=== PATIENT | male | born 1970 | race Caucasian/White ===

== ENCOUNTER 2016-08-15 13:06 | Emergency (ER) | payer BC, MEDICAID ==
[~2016-08-15] VITALS: Ht 180.3 cm; Wt 124.7 kg
[~2016-08-15 13:06] MED LIST: ACET500C4 PO; ALBU8.5H2 PO; ASPI1TAB PO; BUPR8TAB SL; CITA-105 PO; CLON0.5T3 PO; CYCL10TA9 PO; FLUC200T45 PO; FURO40TA4 PO; IBUP800T26 PO; LEVO750T6 PO; LISI-597 PO; LISI1TAB8 PO; METH4TAB; METH4TAB PO; METHYLPRED; METO-272 PO; OMEP40CA36 PO; PRD20T PO; SULF-222 PO; TEST200V3 IJ; ZOLP10TA5 PO
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
[2016-08-15] MEDS ORDERED: CATHETER FLUSH 10 ML SYR IV PRN (13:30)
[2016-08-15] MEDS ORDERED: NS 100 ML (IVPB) BAG IV ONE (13:30)
[2016-08-15] MEDS ORDERED: IOHEXOL 350 MG/ML 100 ML (OMNIPAQUE 350) VIAL IV ONE (13:30)
--- NOTE | 2016-08-15 13:30 | Diagnostic Imaging Report ---
EXAMINATION: Supine portable radiograph of the chest. INDICATION: Injury. FINDINGS: The heart is moderately enlarged. There is minimal prominence of the vascular markings, could relate to congestion. No effusion or pneumothorax demonstrated on this supine radiograph. The mediastinum and sneha appear unremarkable. IMPRESSION: Cardiomegaly with minimal pulmonary vascular congestion. Dictated by: Dictated on workstation # [id number]
[2016-08-15 13:35] LABS: MEAN PLATELET VOLUME 9.6 FL (7.4-10.4); RED BLOOD COUNT 4.34 10^6/uL (4.35-5.85); RED CELL DISTRIBUTION WIDTH 12.9 % (10.0-14.5); WHITE BLOOD COUNT 7.4 10^3/uL (4.3-11.0)
--- NOTE | 2016-08-15 13:44 | Diagnostic Imaging Report ---
EXAMINATION: AP view of the pelvis. INDICATION: Injury. FINDINGS: There is a partially visualized intramedullary nail in the left femur with a partially visualized deformity in the mid shaft of the left femur which appears to relate to an old fracture. There is suggestion of fused left SI joint. No fracture or dislocation is seen. IMPRESSION: No acute process. Dictated by: Dictated on workstation # [id number]
[2016-08-15] MEDS ORDERED: ONDANSETRON 4 MG/2 ML (SDV) Z0FRAN IVP ONE (13:45)
[2016-08-15 13:53] LABS: ALANINE AMINOTRANSFERASE 14 U/L (0-55); ALBUMIN 3.7 GM/DL (3.2-4.5); ALCOHOL < 10 MG/DL (<10); ANION GAP 10 MMOL/L (5-14); ASPARTATE AMINO TRANSFERASE 20 U/L (5-34); BILIRUBIN,DIRECT 0.1 MG/DL (0.0-0.3); BILIRUBIN,INDIRECT 0.3 MG/DL; BILIRUBIN,TOTAL 0.4 MG/DL (0.1-1.0); BLOOD UREA NITROGEN 15 MG/DL (7-18); BUN/CREATININE RATIO 18; CARBON DIOXIDE 29 MMOL/L (21-32); CHLORIDE 99 MMOL/L (98-107); CREATININE SERUM 0.82 MG/DL (0.60-1.30); GFR ESTIMATED > 60; GLUCOSE 99 MG/DL (70-105); POTASSIUM 3.9 MMOL/L (3.6-5.0); SODIUM 138 MMOL/L (135-145); TOTAL PROTEIN 6.7 GM/DL (6.4-8.2)
--- NOTE | 2016-08-15 13:56 | Diagnostic Imaging Report ---
PROCEDURE: CT head and CT cervical spine without contrast. TECHNIQUE: Multiple contiguous axial images were obtained through the brain and cervical spine without the use of intravenous contrast. Sagittal and coronal reformations through the cervical spine were then performed. INDICATION: Injury. FINDINGS: CT HEAD: There is no intracranial hemorrhage, edema or mass effect. The brain parenchyma and emanuel-white differentiation is preserved. There is no hydrocephalus. No extra-axial fluid collection is seen. The calvarium and the orbits appear grossly unremarkable. The nonspecific partial opacification of the anterior ethmoidal air cells and obliteration of the nasal cavity is seen. There is question of nondisplaced nasal bone fractures. CT CERVICAL SPINE: There is straightening of the cervical lordosis. The vertebral body heights are preserved. Disc heights are also preserved. The alignment at the posterior spinal line is satisfactory. There is also satisfactory alignment at the facet joints, lateral masses of C1 and C2 and atlantooccipital joints. No widening of the predental space with the atlantodental joint demonstrates mild degenerative changes and spurring. No posterior osteophytes are noted. IMPRESSION: CT HEAD: 1. No intracranial hemorrhage. 2. Question of a nondisplaced nasal bone fracture. Please correlate clinically. CT CERVICAL SPINE: No fracture seen. Dictated by: Dictated on workstation # [id number]
--- NOTE | 2016-08-15 14:09 | Diagnostic Imaging Report ---
PROCEDURE: CT chest, abdomen, and pelvis with contrast. TECHNIQUE: Multiple contiguous axial images were obtained through the chest, abdomen, and pelvis after the administration of intravenous contrast. INDICATION: Trauma. Right rib pain. FINDINGS: CT chest: There is asymmetric prominence of retroareolar tissue on the right side suggestive of gynecomastia. There is no mediastinal hematoma or mass. No enlarged mediastinal lymph nodes. Borderline-sized axillary lymph nodes are seen of questionable significance. No enlarged axillary lymph nodes are noted. The cardiac size is near the upper limits of normal. No pericardial effusion or hemorrhage. The thoracic aorta is normal in caliber and contour. No evidence of traumatic aortic injury. The lungs demonstrate groundglass opacities near the dependent region bilaterally, probably related to atelectasis or minimal vascular congestion. There is no suspicious area of lung contusion or hemorrhage in the lungs or in the pleura. Minimal atelectasis or scarring in the left lung base is seen. There are minimally displaced posterior right 11th and 12th rib fractures. CT abdomen and pelvis: There is a 1 cm hyperenhancing region in the left hepatic lobe similar to 10/21/2013 exam, likely a flash-filling hemangioma. A slightly more prominent similar lesion is also seen anteriorly in a more central location within the left hepatic lobe and the inferior aspect of the right hepatic lobe also demonstrates a hyperenhancing subsegment of the liver, probably perfusional alteration related enhancement rather than an underlying mass. The gallbladder, the pancreas, and adrenal glands appear unremarkable. The spleen is mildly enlarged measuring 13.7 cm in length. The abdominal aorta is normal in caliber. No retroperitoneal hemorrhage or lymphadenopathy. The kidneys have symmetric enhancement and contrast excretion. No hydronephrosis. There are moderate amounts of fecal material in the colon. The appendix appears normal. There is no peritoneal fluid collection or hemorrhage seen. There is a tiny fat-containing umbilical hernia. The urinary bladder and other pelvic structures appear unremarkable. Partially visualized intramedullary nail in the proximal left femur is seen. There are sclerotic foci in the sacrum less than a centimeter in size likely related to bony islands. These appear similar to 2014 exam. IMPRESSION: CT chest: 1. Minimally displaced posterior right 11th and 12th rib fractures. 2. Gynecomastia more prominent on the right side. CT abdomen and pelvis: 1. Tiny fat-containing umbilical hernia. 2. Mild splenomegaly. 3. No solid organ laceration or hematoma seen in the abdomen or pelvis. Dictated by: Dictated on workstation # [id number]
[2016-08-15] MEDS ORDERED: KETOROLAC 30 MG/ML VIAL IVP STA (14:29)
[2016-08-15] MEDS ORDERED: HYDROmorphone (DILAUDID) 2 MG/ML VIAL IVP STA (15:09)
[2016-08-15] MEDS ORDERED: OXYC-465 PO (15:17)
[2016-08-15 15:30] VITALS: BP 114/72
== END 2016-08-15 15:38 | disposition home or self-care (01) ==
LOC: EDUNIT# 13:06 → ER 13:09
DX: S22.41XA Multiple fractures of ribs, right side, initial encounter for closed fracture (principal); S06.9X9A Unspecified intracranial injury with loss of consciousness of unspecified duration, initial encounter; J44.9 Chronic obstructive pulmonary disease, unspecified; I10 Essential (primary) hypertension; K21.9 Gastro-esophageal reflux disease without esophagitis; M47.9 Spondylosis, unspecified; F31.9 Bipolar disorder, unspecified; F41.9 Anxiety disorder, unspecified; F17.210 Nicotine dependence, cigarettes, uncomplicated; Z79.82 Long term (current) use of aspirin; Z98.890 Other specified postprocedural states; V82 Occupant of powered streetcar injured in transport accident
CPT/HCPCS: 36415; 70450; 71010; 71260; 72125; 72170; 74177; 80048; 80076; 80320; 85027; 93041; 94664; 96374; 96375

== ENCOUNTER 2017-01-05 02:11 | Inpatient (IN) | payer BC, MEDICAID ==
[2017-01-05] VITALS (29 sets, daily range): BP systolic 95–174; BP diastolic 59–96
[~2017-01-05] VITALS: Ht 180.3 cm; Wt 97.1 kg
[~2017-01-05 02:11] MED LIST changes: +OXYC-465 PO; +fentaNYL INJECTION 100 MCG/2 ML AMP ONE
[2017-01-05] MEDS ORDERED: TETANUS,DIPTH,PERTUSS P/F (BOOSTRIX) 0.5 ML VIAL IM STA (02:28)
[2017-01-05 02:34] LABS: MEAN PLATELET VOLUME 9.7 FL (7.4-10.4); RED BLOOD COUNT 4.36 10^6/uL (4.35-5.85); RED CELL DISTRIBUTION WIDTH 12.3 % (10.0-14.5); WHITE BLOOD COUNT 23.8 10^3/uL (4.3-11.0)
[2017-01-05 02:49] LABS: ALANINE AMINOTRANSFERASE 21 U/L (0-55); ALBUMIN 3.7 GM/DL (3.2-4.5); ALCOHOL < 10 MG/DL (<10); ANION GAP 10 MMOL/L (5-14); ASPARTATE AMINO TRANSFERASE 33 U/L (5-34); BILIRUBIN,DIRECT 0.2 MG/DL (0.0-0.3); BILIRUBIN,INDIRECT 0.2 MG/DL; BILIRUBIN,TOTAL 0.4 MG/DL (0.1-1.0); BLOOD UREA NITROGEN 9 MG/DL (7-18); BUN/CREATININE RATIO 10; CARBON DIOXIDE 29 MMOL/L (21-32); CHLORIDE 100 MMOL/L (98-107); GFR ESTIMATED > 60; GLUCOSE 169 MG/DL (70-105); MAGNESIUM 1.8 MG/DL (1.8-2.4); PHOSPHORUS 2.3 MG/DL (2.3-4.7); POTASSIUM 3.5 MMOL/L (3.6-5.0); SODIUM 139 MMOL/L (135-145); TOTAL PROTEIN 6.5 GM/DL (6.4-8.2)
[2017-01-05 02:55] LABS: INR 1.1 (0.8-1.4); PROTHROMBIN TIME PATIENT 13.9 SEC (12.2-14.7)
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
[2017-01-05] MEDS ORDERED: HYDROmorphone (DILAUDID) 2 MG/ML VIAL IVP STA (03:15)
[2017-01-05] MEDS ORDERED: LORazepam INJ 2 MG/ML (ATIVAN) VIAL ONE (03:20)
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
[2017-01-05] MEDS ORDERED: LORazepam INJ 2 MG/ML (ATIVAN) VIAL IVP ONE (03:30)
[2017-01-05] MEDS ORDERED: IOHEXOL 350 MG/ML 100 ML (OMNIPAQUE 350) VIAL IV ONE (03:30)
[2017-01-05] MEDS ORDERED: NS 100 ML (IVPB) BAG IV ONE (03:30)
[2017-01-05] MEDS ORDERED: NS IV 1000 ML 1,000 ML IV ONE (03:33)
[2017-01-05] MEDS ORDERED: TRANEXAMIC ACID 100 MG/ML 10 ML INJECTION IV ONE (03:35)
[2017-01-05] MEDS ORDERED: ROCURONIUM 50 MG/5 ML (ZEMURON) VIAL IV ONE (03:37)
[2017-01-05] MEDS ORDERED: NS (IVPB) 50 ML ONE (03:37)
[2017-01-05] MEDS ORDERED: SUCCINYLCHOLINE INJ 100 MG/5 ML SYR ONE (03:37)
[2017-01-05] MEDS ORDERED: KETAMINE HCL 100 MG/ML 5 ML VIAL ONE (03:38)
[2017-01-05] MEDS ORDERED: fentaNYL INJECTION 250 MCG/5 ML AMP ONE (03:38)
[2017-01-05] MEDS ORDERED: TRANEXAMIC ACID INJECTION 1,000 MG in NS (IVPB) 50 ML IV ONE (03:45)
[2017-01-05] MEDS ORDERED: TRANEXAMIC ACID INJECTION 1,000 MG in NS (IVPB) 250 ML IV SCH (03:45)
[2017-01-05] MEDS ORDERED: PHENYLEPHRINE 100 MCG/ML 10 ML (ANESTHESIA) SYR ONE (04:40)
[2017-01-05] MEDS ORDERED: ONDANSETRON 4 MG/2 ML (SDV) Z0FRAN ONE (04:40)
[2017-01-05] MEDS ORDERED: ceFAZolin 2 GM/50 ML NS 50 ML IV ONE (05:15)
[2017-01-05] MEDS ORDERED: NEOSTIGMINE (BLOXIVERZ ) 1 MG/1ML 10 ML VIAL ONE (05:31)
[2017-01-05] MEDS ORDERED: GLYCOPYRROLATE 0.2 MG/ML (ROBINUL) 2 ML VIAL ONE (05:31)
[2017-01-05] MEDS ORDERED: ONDANSETRON 4 MG/2 ML (SDV) Z0FRAN IVP PRN ×2 (05:45→06:30)
--- NOTE | 2017-01-05 06:00 | Progress Note-Post Operative ---
Post-Operative Progess Note Surgeon (s)/[employer] (s) Surgeon SHAJI CRAIG DO [employer]: Clara Pre-Operative Diagnosis Splenic Lac, 4 rib fx, radius fx Post-Operative Diagnosis same Procedure & Operative Findings Date of Procedure 01/05/17 Procedure Performed/Findings Ex Lap with splenectomy Anesthesia Type GET Estimated Blood Loss Estimated blood loss (mL): 2700ml Specimens/Packing Specimens Removed Spleen SHAJI CRAIG DO Jan 05, 2017 06:00
[2017-01-05] MEDS ORDERED: PROPOFOL DRIP (ICU) 100 ML IV ONE (06:03)
[2017-01-05] MEDS ORDERED: MIDAZOLAM 5 MG/5 ML (VERSED) VIAL ONE (06:03)
[2017-01-05] MEDS ORDERED: NS IV 1000 ML 1,000 ML ONE (06:11)
[2017-01-05] MEDS ORDERED: proPOfol 200 MG/20 ML (DIPRIVAN) VIAL IV ONE (06:23)
[2017-01-05] MEDS ORDERED: SEVOFLURANE (ULTANE) 15 ML INHAL SOLN ONE (06:24)
[2017-01-05] MEDS ORDERED: MIDAZOLAM 2 MG/2 ML (VERSED) VIAL IVP ONE (06:30)
[2017-01-05] MEDS ORDERED: NS IV 1000 ML 2,000 ML ONE (06:52)
[2017-01-05] MEDS ORDERED: NS IV 500 ML 500 ML ONE (07:20)
[2017-01-05 07:21] LABS: ABG BASE EXCESS 0.2 MMOL/L (-2.5-2.5); ABG HCO3 26 MMOL/L (23-27); ABG OXYGEN SATURATION 99 % (94-100); ABG PCO2 51 MMHG (35-45); ABG PO2 128 MMHG (79-93); ABG TCO2 27.3 MMOL/L (21.0-31.0)
[2017-01-05] MEDS: POTASSIUM CL 10MEQ/50ML IVPB 50 ML IV SCH (07:21)
[2017-01-05] MEDS: LACTATED RINGERS 1,000 ML IV SCH ×4 (07:21→22:23)
[2017-01-05] MEDS: KCL 20 MEQ TAB (K-DUR) PO SCH (07:22)
[2017-01-05] MEDS: MAGNESIUM 1 GM/100 ML IVPB 100 ML IV SCH (07:22)
[2017-01-05 07:29] LABS: ABG PH 7.32 (7.37-7.43)
[2017-01-05 07:30] LABS: ALLENS TEST YES-POS; PATIENT TEMP 96.8
[2017-01-05] MEDS ORDERED: KETAMINE INJECTION 100 MG in NS (IVPB) 100 ML IV SCH (07:30)
[2017-01-05] MEDS ORDERED: PROPOFOL DRIP (ICU) 100 ML IV SCH (07:30)
[2017-01-05] MEDS ORDERED: NS IV 500 ML 500 ML IV ONE (07:45)
[2017-01-05] MEDS: RT-ALBUTEROL/IPRATROPIUM 3 ML (DUONEB) VIAL IH SCH ×4 (08:04→18:39)
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
[2017-01-05] MEDS ORDERED: GLUCAGON EMERGENCY 1 MG/KIT IM PRN (08:15)
[2017-01-05] MEDS ORDERED: DEXTROSE 50% 50 ML (IMS) SYR IV PRN (08:15)
[2017-01-05] MEDS ORDERED: DEXTROSE 10% IV SOLUTION 1,000 ML IV PRN (08:15)
[2017-01-05 08:36] LABS: ANION GAP 8 MMOL/L (5-14); BLOOD UREA NITROGEN 10 MG/DL (7-18); BUN/CREATININE RATIO 13; CARBON DIOXIDE 26 MMOL/L (21-32); CHLORIDE 105 MMOL/L (98-107); CREATININE SERUM 0.76 MG/DL (0.60-1.30); GFR ESTIMATED > 60; GLUCOSE 180 MG/DL (70-105); MAGNESIUM 1.4 MG/DL (1.8-2.4); POTASSIUM 4.1 MMOL/L (3.6-5.0); SODIUM 139 MMOL/L (135-145)
[2017-01-05] MEDS: CHLORHEXIDINE 0.12% SOLN 15 ML (PERIDEX) UDC PO SCH ×2 (08:43→21:26)
[2017-01-05] MEDS: PANTOPRAZOLE 40 MG/10 ML (PROTONIX) VIAL IVP SCH (08:45)
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
--- NOTE | 2017-01-05 10:49 | Diagnostic Imaging Report ---
INDICATION: Intubation. COMPARISON: 01/05/2017 at 2:30 AM TIME OF EXAM 01/05/2017 at 6:40 AM FINDINGS: Semierect portable view of the chest is obtained. The patient is now intubated. Endotracheal tube is approximately 5.5 cm proximal to the jazz at the level of the head of the clavicles. There is an orogastric tube present which appears to be in the stomach. Side port is also in the proximal stomach just beyond the gastroesophageal junction. Heart size and pulmonary vasculature appear normal. There is no pneumothorax, mediastinal widening or pleural fluid. There is patchy atelectasis or infiltrate in the medial right lung base, slightly worse when compared to the recent prior study. The upper lungs remain well-aerated. IMPRESSION: 1. Endotracheal and orogastric tubes appear in good position, as described. 2. There is some patchy right basilar atelectasis or infiltrate, slightly worse than the recent prior study. Dictated by: Dictated on workstation # [id number]
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
[2017-01-05] MEDS: PROPOFOL DRIP (ICU) 100 ML IV SCH ×2 (11:17→16:27)
[2017-01-05] MEDS ORDERED: INFLUENZA TRIvalent 2017-2018 0.5 ML/45 MCG SYR IM ONE (12:30)
[2017-01-05] MEDS: inSUlin (REGULAR) HUMAN 1 UNIT/0.01 ML (CHARGE PER UNIT) SC SCH ×2 (12:38→18:18)
[2017-01-05] MEDS ORDERED: KETAMINE INJECTION 500 MG in NS IV 500 ML 500 ML IV SCH (13:15)
[2017-01-05] MEDS: KETOROLAC 30 MG/ML VIAL IVP PRN (14:24)
[2017-01-05] MEDS: morphine INJ 10 MG/ML 1ML (SYR OR VIAL) IVP PRN ×2 (15:25→21:26)
[2017-01-05 16:44] LABS: BILIRUBIN,URINE NEGATIVE (NEGATIVE); KETONES,URINE NEGATIVE (NEGATIVE); LEUKOCYTE ESTERASE ,URINE 2+ (NEGATIVE); NITRITE,URINE NEGATIVE (NEGATIVE); PH,URINE 5 (5-9); PROTEIN,URINE 2+ (NEGATIVE); UROBILINOGEN,URINE 1 MG/DL (NORMAL)
[2017-01-06] VITALS (23 sets, daily range): BP systolic 113–145; BP diastolic 68–88
[2017-01-06] MEDS: inSUlin (REGULAR) HUMAN 1 UNIT/0.01 ML (CHARGE PER UNIT) SC SCH ×5 (00:09→23:52)
[2017-01-06] MEDS: morphine INJ 10 MG/ML 1ML (SYR OR VIAL) IVP PRN ×4 (00:20→09:46)
[2017-01-06] MEDS: AMPICILLIN/SULBACTAM 3 GM/NS 100 ML IVPB IV SCH ×10 (00:25→23:59)
[2017-01-06] MEDS: KETOROLAC 30 MG/ML VIAL IVP PRN ×2 (00:33→06:49)
[2017-01-06] MEDS ORDERED: ALPRAZolam 1 MG (XANAX) TAB ONE (00:46)
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
[2017-01-06 04:30] LABS: BASOPHILS % (AUTO) 0 % (0-10); EOSINOPHILS % (AUTO) 0 % (0-10); LYMPHOCYTES % (AUTO) 19 % (12-44); MEAN CORPUSCULAR HEMOGLOBIN 29 PG (25-34); MEAN CORPUSCULAR HGB CONC 34 G/DL (32-36); MEAN CORPUSCULAR VOLUME 87 FL (80-99); MEAN PLATELET VOLUME 10.4 FL (7.4-10.4); MONOCYTES # (AUTO) 1.7 X 10^3 (0.0-1.0); MONOCYTES % (AUTO) 11 % (0-12); NEUTROPHILS # (AUTO) 11.1 X 10^3 (1.8-7.8); NEUTROPHILS % (AUTO) 70 % (42-75); PLATELET COUNT 223 10^3/uL (130-400); RED BLOOD COUNT 2.98 10^6/uL (4.35-5.85); RED CELL DISTRIBUTION WIDTH 13.6 % (10.0-14.5); WHITE BLOOD COUNT 15.8 10^3/uL (4.3-11.0)
[2017-01-06 04:44] LABS: ANION GAP 7 MMOL/L (5-14); BLOOD UREA NITROGEN 14 MG/DL (7-18); BUN/CREATININE RATIO 21; CALCIUM 7.8 MG/DL (8.5-10.1); CARBON DIOXIDE 28 MMOL/L (21-32); CHLORIDE 105 MMOL/L (98-107); CREATININE SERUM 0.68 MG/DL (0.60-1.30); GFR ESTIMATED > 60; GLUCOSE 101 MG/DL (70-105); MAGNESIUM 1.5 MG/DL (1.8-2.4); PHOSPHORUS 3.5 MG/DL (2.3-4.7); SODIUM 140 MMOL/L (135-145)
[2017-01-06] MEDS: PROPOFOL DRIP (ICU) 100 ML IV SCH (05:26)
[2017-01-06] MEDS: MAGNESIUM 1 GM/100 ML IVPB 100 ML IV SCH ×3 (05:27→07:18)
[2017-01-06] MEDS: KCL 20 MEQ TAB (K-DUR) PO SCH (05:27)
[2017-01-06] MEDS: POTASSIUM CL 10MEQ/50ML IVPB 50 ML IV SCH (05:27)
[2017-01-06] MEDS: RT-ALBUTEROL/IPRATROPIUM 3 ML (DUONEB) VIAL IH SCH ×4 (06:44→18:56)
[2017-01-06] MEDS: LACTATED RINGERS 1,000 ML IV SCH ×2 (07:48→16:35)
[2017-01-06] MEDS: PANTOPRAZOLE 40 MG/10 ML (PROTONIX) VIAL IVP SCH (08:16)
[2017-01-06] MEDS: CHLORHEXIDINE 0.12% SOLN 15 ML (PERIDEX) UDC PO SCH ×2 (08:17→21:06)
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
--- NOTE | 2017-01-06 10:58 | Progress Note ---
Subjective Time Seen by Provider: 10:19 Subjective/Events-last exam Pt seen and examined, main complaint is of pain. Pt also asking about food. Denies SOB, not taking deep breaths. Review of Systems General: No Chills, No Night Sweats HEENT: Head Aches Pulmonary: No Dyspnea, No Cough Cardiovascular: No: Chest Pain Gastrointestinal: Abdominal Pain, No: Nausea, Vomiting Objective Exam Vital Signs Date Time Temp Pulse Resp B/P (MAP) Pulse Ox O2 Delivery O2 Flow Rate FiO2 01/06/17 08:20 100.0 Nasal Cannula 1.00 01/06/17 08:15 Nasal Cannula 1.00 01/06/17 07:00 107 01/06/17 07:00 107 18 140/76 95 Nasal Cannula 3.00 01/06/17 06:45 99 Nasal Cannula 3.00 01/06/17 06:00 103 11 145/86 99 Nasal Cannula 3.00 01/06/17 05:00 107 13 141/82 98 Nasal Cannula 3.00 01/06/17 04:00 Nasal Cannula 3.00 01/06/17 04:00 108 10 97 Nasal Cannula 3.00 01/06/17 04:00 97.8 01/06/17 03:00 104 15 143/88 99 Nasal Cannula 3.00 01/06/17 02:00 109 13 138/85 100 Nasal Cannula 3.00 01/06/17 01:00 120 21 132/78 97 Nasal Cannula 3.00 01/06/17 01:00 118 01/06/17 00:00 120 15 138/85 98 Nasal Cannula 3.00 01/06/17 00:00 97.4 01/06/17 00:00 Nasal Cannula 3.00 01/05/17 23:00 112 14 126/81 98 Nasal Cannula 3.00 01/05/17 22:00 122 14 124/70 99 Nasal Cannula 3.00 01/05/17 21:00 128 10 113/67 96 Mechanical Ventilator 30.00 01/05/17 20:30 137 13 97 30 01/05/17 20:00 97.8 135 12 103/64 95 Mechanical Ventilator 30.00 01/05/17 20:00 Mechanical Ventilator 30 01/05/17 19:50 137 22 95 21 01/05/17 19:00 137 18 99/61 92 Mechanical Ventilator 30.00 01/05/17 19:00 135 11/25/17 18:39 129 21 92 21 01/05/17 18:00 128 15 98/68 92 Mechanical Ventilator 21.00 01/05/17 17:16 123 21 94 21 01/05/17 17:00 124 14 117/70 94 Mechanical Ventilator 21.00 01/05/17 16:27 125/76 01/05/17 16:10 Mechanical Ventilator 21 01/05/17 16:10 97.8 Mechanical Ventilator 21.00 01/05/17 16:00 122 16 124/74 95 Mechanical Ventilator 21.00 01/05/17 15:00 121 15 132/76 95 Mechanical Ventilator 21.00 01/05/17 14:07 109 19 96 21 01/05/17 14:00 108 18 135/91 97 Mechanical Ventilator 21.00 01/05/17 13:00 105 11 131/89 96 Mechanical Ventilator 21.00 01/05/17 13:00 105 01/05/17 12:16 Mechanical Ventilator 21 01/05/17 12:11 101 21 97 21 01/05/17 12:05 97.3 Mechanical Ventilator 21.00 01/05/17 12:00 100 16 134/93 97 Mechanical Ventilator 30.00 01/05/17 11:17 130/89 01/05/17 11:00 100 16 136/87 96 Mechanical Ventilator 30.00 I & O 01/07/17 07:00 Intake Total 100 ml Balance 100 ml Capillary Refill : Less Than 3 SecondsLess Than 3 Seconds General Appearance: Anxious, Mild Distress HEENT: No Pale Conjunctivae (L), No Pale Conjunctivae (R), No Scleral Icterus ( L), No Scleral Icterus (R) Neck: No Tender Midline, No Thyromegaly, Other (pt in c-collar) Respiratory: Lungs Clear, Normal Breath Sounds, No Accessory Muscle Use, No Respiratory Distress, Other (chest tender on the left) Cardiovascular: Regular Rate, Rhythm, No Murmur Peripheral Pulses: 2+ Dorsalis Pedis (R), 2+ Left Dors-Pedis (L), 2+ Radial Pulses (R), 2+ Radial Pulses (L) Gastrointestinal: soft, No guarding, No rebound, tenderness (mild throughout) Extremity: Normal Capillary Refill, No Calf Tenderness Neurologic/Psychiatric: Alert, Oriented x3 Skin: Tattoos/Piercings, Other (multiple lacerations left eyebrow, forehead, scalp.....small appx 1cm. laceration left lower leg and abrasions on both legs and arms) Results Lab Laboratory Tests 01/05/17 12:30: Hemoglobin 9.0#L, Hematocrit 26L 01/05/17 12:32: Glucometer 120H 01/05/17 16:38: Urine Color YELLOW, Urine Clarity CLEAR, Urine pH 5, Urine Specific [place] 1.015L, Urine Protein 2+H, Urine Glucose (UA) NEGATIVE, Urine Ketones NEGATIVE, Urine Nitrite NEGATIVE, Urine Bilirubin NEGATIVE, Urine Urobilinogen 1, Urine Leukocyte Esterase 2+H, Urine RBC (Auto) NEGATIVE, Urine RBC NONE, Urine WBC 10- 25H, Urine Squamous Epithelial Cells NONE, Urine Crystals NONE, Urine Bacteria FEWH, Urine Casts NONE, Urine Mucus NEGATIVE, Urine Other SPERM SEEN, Urine Culture Indicated YES, Urine Opiates Screen POSITIVEH, Urine Oxycodone Screen NEGATIVE, Urine Methadone Screen NEGATIVE, Urine Propoxyphene Screen NEGATIVE, Urine Barbiturates Screen NEGATIVE, Ur Tricyclic Antidepressants Screen NEGATIVE , Urine Phencyclidine Screen NEGATIVE, Urine Amphetamines Screen POSITIVEH, Urine Methamphetamines Screen POSITIVEH, Urine Benzodiazepines Screen POSITIVEH , Urine Cocaine Screen NEGATIVE, Urine Cannabinoids Screen NEGATIVE 01/05/17 17:59: Glucometer 176H 01/05/17 18:43: Hemoglobin 9.3L, Hematocrit 27L 01/06/17 00:05: Glucometer 97 01/06/17 03:47: Hemoglobin 8.7L, Hematocrit 26L, White Blood Count 15.8H, Red Blood Count 2.98L , Mean Corpuscular Volume 87, Mean Corpuscular Hemoglobin 29, Mean Corpuscular Hemoglobin Concent 34, Red Cell Distribution Width 13.6, Platelet Count 223, Mean Platelet Volume 10.4, Neutrophils (%) (Auto) 70, Lymphocytes (%) (Auto) 19 , Monocytes (%) (Auto) 11, Eosinophils (%) (Auto) 0, Basophils (%) (Auto) 0, Neutrophils # (Auto) 11.1H, Lymphocytes # (Auto) 3.0, Monocytes # (Auto) 1.7H, Eosinophils # (Auto) 0.0, Basophils # (Auto) 0.0, Sodium Level 140, Potassium Level 4.0, Chloride Level 105, Carbon Dioxide Level 28, Anion Gap 7, Blood Urea Nitrogen 14, Creatinine 0.68, Estimat Glomerular Filtration Rate > 60, BUN/ Creatinine Ratio 21, Glucose Level 101, Calcium Level 7.8L, Phosphorus Level 3.5 , Magnesium Level 1.5L Microbiology 01/05/17 Gram Stain - Final, Resulted 01/05/17 Sputum Culture - Preliminary, Resulted Usual/normal gayatri isolated. Assessment/Plan Assessment/Plan Assessment/Plan 1. S/P Splenectomy 2. Multiple lacerations 3. Orbital fx - on Unasyn 4. Right radial and ulnar fx - Ortho plans surgery, tomorrow Pain control, monitor H/H. Start clear liquid diet and increase as tolerated, NPO after midnight. Continue IV ABX for nasal fx into orbital cavity. Clinical Quality Measures DVT/VTE Risk/Contraindication: Risk Factor Score Per Nursin RFS Level Per Nursing on Admit: 4+=Very High SHAJI CRAIG DO Jan 06, 2017 10:58
[2017-01-06] MEDS: HYDROmorphone PF INJECTION 40 MG in NS (IVPB) 96 ML IV SCH (12:03)
[2017-01-06] MEDS ORDERED: SUFENTA 0.6MCG/ML BUPIVA 0.125 100 ML ONE (13:22)
[2017-01-06 13:23] LABS: INR 1.1 (0.8-1.4); PROTHROMBIN TIME PATIENT 14.4 SEC (12.2-14.7)
[2017-01-06] MEDS ORDERED: BUPIVACAINE 0.25% 30 ML (SENSORCAINE) VIAL ONE (13:23)
[2017-01-06] MEDS ORDERED: RT-ALBUINH IH (16:57)
[2017-01-06] MEDS ORDERED: IBUP-1780 PO (16:57)
[2017-01-06] MEDS ORDERED: BUPR8TAB SL (16:57)
[2017-01-06] MEDS ORDERED: ALPR1TAB7 PO (16:57)
[2017-01-06] MEDS ORDERED: ASPI-789 PO (16:57)
[2017-01-06] MEDS ORDERED: GABA-488 PO (16:57)
[2017-01-07] VITALS (17 sets, daily range): BP systolic 118–147; BP diastolic 68–91
[2017-01-07] MEDS ORDERED: SUFENTA 0.6MCG/ML BUPIVA 0.125 100 ML ONE (02:14)
[2017-01-07 06:18] LABS: BASOPHILS # (AUTO) 0.1 10^3/uL (0.0-0.1); BASOPHILS % (AUTO) 1 % (0-10); EOSINOPHILS # (AUTO) 0.3 10^3/uL (0.0-0.3); EOSINOPHILS % (AUTO) 1 % (0-10); LYMPHOCYTES # (AUTO) 3.2 X 10^3 (1.0-4.0); LYMPHOCYTES % (AUTO) 18 % (12-44); MEAN CORPUSCULAR HEMOGLOBIN 29 PG (25-34); MEAN CORPUSCULAR HGB CONC 32 G/DL (32-36); MEAN CORPUSCULAR VOLUME 91 FL (80-99); MEAN PLATELET VOLUME 10.4 FL (7.4-10.4); MONOCYTES # (AUTO) 1.4 X 10^3 (0.0-1.0); MONOCYTES % (AUTO) 8 % (0-12); NEUTROPHILS # (AUTO) 12.8 X 10^3 (1.8-7.8); NEUTROPHILS % (AUTO) 72 % (42-75); PLATELET COUNT 264 10^3/uL (130-400); RED BLOOD COUNT 2.84 10^6/uL (4.35-5.85); RED CELL DISTRIBUTION WIDTH 13.3 % (10.0-14.5); WHITE BLOOD COUNT 17.8 10^3/uL (4.3-11.0)
[2017-01-07] MEDS: AMPICILLIN/SULBACTAM 3 GM/NS 100 ML IVPB IV SCH ×4 (06:25→16:52)
[2017-01-07] MEDS: inSUlin (REGULAR) HUMAN 1 UNIT/0.01 ML (CHARGE PER UNIT) SC SCH ×4 (06:27→23:51)
[2017-01-07] MEDS: POTASSIUM CL 10MEQ/50ML IVPB 50 ML IV SCH (06:31)
[2017-01-07] MEDS: MAGNESIUM 1 GM/100 ML IVPB 100 ML IV SCH (06:31)
[2017-01-07] MEDS: KCL 20 MEQ TAB (K-DUR) PO SCH (06:31)
[2017-01-07 06:36] LABS: ANION GAP 7 MMOL/L (5-14); BLOOD UREA NITROGEN 9 MG/DL (7-18); BUN/CREATININE RATIO 16; CALCIUM 8.1 MG/DL (8.5-10.1); CARBON DIOXIDE 29 MMOL/L (21-32); CHLORIDE 103 MMOL/L (98-107); CREATININE SERUM 0.58 MG/DL (0.60-1.30); GFR ESTIMATED > 60; GLUCOSE 97 MG/DL (70-105); MAGNESIUM 1.8 MG/DL (1.8-2.4); PHOSPHORUS 2.4 MG/DL (2.3-4.7); POTASSIUM 4.1 MMOL/L (3.6-5.0); SODIUM 139 MMOL/L (135-145)
[2017-01-07] MEDS: RT-ALBUTEROL/IPRATROPIUM 3 ML (DUONEB) VIAL IH SCH ×4 (07:16→18:42)
[2017-01-07] MEDS ORDERED: PNEUMOCOCCAL VACCINE 25 MCG/0.5 ML VIAL IM ONE (08:00)
[2017-01-07] MEDS ORDERED: HAEMOPH B POLY CONJ-TET TOX/PF 0.5 ML/10 MCG SOLN IM ONE (08:00)
[2017-01-07] MEDS ORDERED: LACTATED RINGERS 1,000 ML IV PRN (08:15)
[2017-01-07] MEDS: PANTOPRAZOLE 40 MG/10 ML (PROTONIX) VIAL IVP SCH (08:17)
[2017-01-07] MEDS: HYDROmorphone PF INJECTION 40 MG in NS (IVPB) 96 ML IV SCH (08:29)
[2017-01-07] MEDS: LACTATED RINGERS 1,000 ML IV SCH ×5 (08:48→20:52)
[2017-01-07] MEDS: CHLORHEXIDINE 0.12% SOLN 15 ML (PERIDEX) UDC PO SCH ×2 (09:08→21:56)
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
[2017-01-07] MEDS ORDERED: MIDAZOLAM 2 MG/2 ML (VERSED) VIAL ONE (09:57)
[2017-01-07] MEDS ORDERED: proPOfol 200 MG/20 ML (DIPRIVAN) VIAL IV ONE (09:57)
[2017-01-07] MEDS ORDERED: LACTATED RINGERS 0 ML IV ONE (09:57)
[2017-01-07] MEDS ORDERED: LIDOCAINE PF 2% 5 ML (XYLOCAINE) VIAL ONE (09:57)
[2017-01-07] MEDS ORDERED: ONDANSETRON 4 MG/2 ML (SDV) Z0FRAN ONE (09:57)
[2017-01-07] MEDS ORDERED: fentaNYL INJECTION 100 MCG/2 ML AMP ONE (09:58)
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
[2017-01-07] MEDS ORDERED: ceFAZolin 1,000 MG (ANCEF) VIAL ONE (10:25)
[2017-01-07] MEDS ORDERED: BUP/EPI 0.5% 1:200,000 (MARCAINE) 10ML VIAL IJ ONE (10:35)
[2017-01-07] MEDS ORDERED: ROCURONIUM 50 MG/5 ML (ZEMURON) VIAL IV ONE (10:37)
[2017-01-07] MEDS ORDERED: ceFAZolin INJECTION 1,000 MG in NS (IVPB) 50 ML IV ONE (11:45)
[2017-01-07] MEDS ORDERED: SEVOFLURANE (ULTANE) 15 ML INHAL SOLN ONE (12:49)
[2017-01-07] MEDS ORDERED: PROMETHAZINE INJ 25 MG/ML (PHENERGAN) AMP IVP PRN (13:30)
[2017-01-07] MEDS ORDERED: MEPERIDINE (DEMEROL) INJ 50 MG/ML IVP PRN (13:30)
[2017-01-07] MEDS ORDERED: ONDANSETRON 4 MG/2 ML (SDV) Z0FRAN IVP PRN (13:30)
[2017-01-07] MEDS ORDERED: morphine INJ 10 MG/ML 1ML (SYR OR VIAL) IVP PRN (13:30)
[2017-01-07] MEDS ORDERED: fentaNYL INJECTION 100 MCG/2 ML AMP IVP PRN (13:30)
[2017-01-07] MEDS ORDERED: HYDROmorphone (DILAUDID) 2 MG/ML VIAL IVP PRN (13:30)
--- NOTE | 2017-01-07 13:48 | Operative Report ---
Operative Report Date of Procedure/Surgery Jan 07, 2017 Surgeon (s) FRANCISCO ORTEGA DO [employer] Specialist (s): Antonio Martins PA-C Post-Operative Diagnosis Displaced intraarticular fracture Right distal radius Nondisplaced fracture Right schaphoid waist Minimally displaced fracture Right ulnar styloid Procedure Performed ORIF Right distal radius fracture Description of Procedure Anesthesia Type: General Estimated blood loss (mL): 25 Specimen(s) collected/removed None Description of the Procedure Open reduction/internal fixation displaced, unstable intraarticular fracture Right distal radius Findings of the Procedure Displaced, intraarticular fracture Right distal radius with significant metaphyseal comminution/impaction. Allergies and Home Medications Allergies Coded Allergies: clarithromycin (Unverified Allergy, Unknown, 10/20/13) CAUSES YEAST INFECTION lorazepam (Verified Adverse Reaction, Unknown, 01/05/17) per , pt becomes very agitated/agressive with this medication Home Medications Albuterol Sulfate 1 Puff Puff, 2 PUFF IH Q6H PRN for SHORTNESS OF BREATH, ( Reported) Alprazolam 1 Mg Tablet, 1 MG PO TID, (Reported) Aspirin/Acetaminophen/Caffeine 1 Each Tablet, 2 TAB PO Q8H PRN for MIGRAINE, ( Reported) Buprenorphine HCl 8 Mg Tab.subl, 8 MG SL QID, (Reported) Gabapentin 300 Mg Capsule, 300 MG PO TID PRN for PAIN, (Reported) Ibuprofen 800 Mg Tablet, 800 MG PO Q6H PRN for PAIN-MILD, (Reported) FRANCISCO ORTEGA DO Jan 07, 2017 13:48
[2017-01-07] MEDS: KETOROLAC 30 MG/ML VIAL IVP PRN (16:33)
[2017-01-07] MEDS: ALPRAZolam 1 MG (XANAX) TAB PO PRN (16:33)
--- NOTE | 2017-01-07 16:57 | Diagnostic Imaging Report ---
INDICATION: Right wrist fracture FINDINGS: Fluoroscopic views were obtained during ORIF of right wrist fractures. Plate and screws are seen fusing the distal radial fracture in good alignment. Ulnar styloid avulsion also noted. External fixation devices are seen with the screws in the distal radius and first metacarpal. IMPRESSION: Intraoperative views obtained during ORIF of right wrist fractures, as above. One minute 27 seconds of fluoroscopy time was used. Dictated by: Dictated on workstation # [id number]
[2017-01-07] MEDS: EPIDURAL (SUFENTA 0.6MCG/ML BUPIVA 0.125%) 100 ML BAG IV PRN (18:09)
[2017-01-08] VITALS (17 sets, daily range): BP systolic 117–159; BP diastolic 62–94
[2017-01-08] MEDS: KETOROLAC 30 MG/ML VIAL IVP PRN (00:08)
[2017-01-08] MEDS: AMPICILLIN/SULBACTAM 3 GM/NS 100 ML IVPB IV SCH ×10 (00:08→22:51)
[2017-01-08] MEDS: LACTATED RINGERS 1,000 ML IV SCH ×3 (05:26→23:31)
[2017-01-08 05:27] LABS: BASOPHILS # (AUTO) 0.1 10^3/uL (0.0-0.1); BASOPHILS % (AUTO) 1 % (0-10); EOSINOPHILS # (AUTO) 0.3 10^3/uL (0.0-0.3); EOSINOPHILS % (AUTO) 2 % (0-10); LYMPHOCYTES # (AUTO) 2.4 X 10^3 (1.0-4.0); LYMPHOCYTES % (AUTO) 15 % (12-44); MEAN CORPUSCULAR HEMOGLOBIN 30 PG (25-34); MEAN CORPUSCULAR HGB CONC 32 G/DL (32-36); MEAN CORPUSCULAR VOLUME 91 FL (80-99); MEAN PLATELET VOLUME 10.1 FL (7.4-10.4); MONOCYTES # (AUTO) 1.3 X 10^3 (0.0-1.0); MONOCYTES % (AUTO) 8 % (0-12); NEUTROPHILS # (AUTO) 11.7 X 10^3 (1.8-7.8); NEUTROPHILS % (AUTO) 74 % (42-75); PLATELET COUNT 318 10^3/uL (130-400); RED BLOOD COUNT 2.51 10^6/uL (4.35-5.85); RED CELL DISTRIBUTION WIDTH 12.4 % (10.0-14.5); WHITE BLOOD COUNT 15.9 10^3/uL (4.3-11.0)
[2017-01-08 05:43] LABS: ANION GAP 5 MMOL/L (5-14); BLOOD UREA NITROGEN 10 MG/DL (7-18); BUN/CREATININE RATIO 16; CALCIUM 7.8 MG/DL (8.5-10.1); CARBON DIOXIDE 32 MMOL/L (21-32); CHLORIDE 101 MMOL/L (98-107); CREATININE SERUM 0.61 MG/DL (0.60-1.30); GFR ESTIMATED > 60; GLUCOSE 114 MG/DL (70-105); MAGNESIUM 1.8 MG/DL (1.8-2.4); PHOSPHORUS 2.4 MG/DL (2.3-4.7); POTASSIUM 3.7 MMOL/L (3.6-5.0); SODIUM 138 MMOL/L (135-145)
[2017-01-08] MEDS: ALPRAZolam 1 MG (XANAX) TAB PO PRN ×2 (05:47→22:50)
[2017-01-08] MEDS: POTASSIUM CL 10MEQ/50ML IVPB 50 ML IV SCH (06:12)
[2017-01-08] MEDS: MAGNESIUM 1 GM/100 ML IVPB 100 ML IV SCH (06:12)
[2017-01-08] MEDS: inSUlin (REGULAR) HUMAN 1 UNIT/0.01 ML (CHARGE PER UNIT) SC SCH ×2 (06:12→13:07)
[2017-01-08] MEDS: KCL 20 MEQ TAB (K-DUR) PO SCH (06:12)
[2017-01-08] MEDS: RT-ALBUTEROL/IPRATROPIUM 3 ML (DUONEB) VIAL IH SCH ×4 (07:27→19:14)
[2017-01-08] MEDS: CHLORHEXIDINE 0.12% SOLN 15 ML (PERIDEX) UDC PO SCH ×2 (08:37→21:32)
[2017-01-08] MEDS: PANTOPRAZOLE 40 MG/10 ML (PROTONIX) VIAL IVP SCH (08:37)
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
[2017-01-08] MEDS: EPIDURAL (SUFENTA 0.6MCG/ML BUPIVA 0.125%) 100 ML BAG IV PRN (09:52)
[2017-01-08] MEDS ORDERED: LIDOCAINE UROJET 2% GEL 10 ML PKG ONE (14:09)
--- NOTE | 2017-01-08 15:20 | Anesthesia-General Post-Op ---
General Patient Condition Mental Status/LOC: Same as Preop Cardiovascular: Satisfactory Nausea/Vomiting: Absent Respiratory: Satisfactory Pain: Uncontrolled Complications: Absent Post Op Complications Complications None Follow Up Care/Instructions Patient Instructions None needed. Anesthesia/Patient Condition Patient Condition Patient remains in ICU 9, sitting in semi-fowlers in bed with his at his side. No apparent adverse anesthesia problems; however, patient complains that he has pain and is not sure the thoracic epidural is working. I discussed with patient that we will plan on DC catheter on 01/09/17. 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 I reported his complaints of pain to his nurse, Fiona. Patient was encouraged to continue turning, incentive spirometry, and coughing. ROYAL GUPTA CRNA Jan 08, 2017 15:20
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
[2017-01-08] MEDS ORDERED: HYDROmorphone PF INJECTION 40 MG in NS (IVPB) 96 ML IV SCH ×2 (17:24→19:42)
--- NOTE | 2017-01-08 17:45 | Progress Note ---
Subjective Time Seen by Provider: 17:28 Subjective/Events-last exam Pt seen and examined, states pain medications are not working he isn't getting any pain relief. Pt denies and flatus or BM. He complains of left shoulder pain and is refusing to use arm, he also is refusing to get out of bed....but did get up to chair with PT. He states he is using his IS. Review of Systems General: No Chills, No Night Sweats Pulmonary: No Cough Cardiovascular: No: Chest Pain Gastrointestinal: Abdominal Pain, No: Nausea, Vomiting Musculoskeletal: shoulder pain Objective Exam Vital Signs Date Time Temp Pulse Resp B/P (MAP) Pulse Ox O2 Delivery O2 Flow Rate FiO2 01/08/17 16:00 Nasal Cannula 3.50 01/08/17 15:29 99 Nasal Cannula 3.00 01/08/17 13:00 86 16 145/80 87 Nasal Cannula 3.00 01/08/17 13:00 86 01/08/17 12:00 Nasal Cannula 3.50 01/08/17 12:00 99 15 148/85 87 Nasal Cannula 3.00 01/08/17 11:00 92 13 144/83 87 Nasal Cannula 3.00 01/08/17 10:40 96 Nasal Cannula 3.00 01/08/17 10:00 95 18 145/89 87 Nasal Cannula 3.00 01/08/17 09:00 90 14 135/76 96 Nasal Cannula 3.00 01/08/17 08:00 Nasal Cannula 3.50 01/08/17 08:00 92 16 123/77 98 Nasal Cannula 3.00 01/08/17 08:00 100.0 Nasal Cannula 3.50 01/08/17 07:27 98 Nasal Cannula 3.00 01/08/17 07:00 85 01/08/17 07:00 84 12 128/73 96 Nasal Cannula 3.00 01/08/17 06:00 97 17 117/65 96 Nasal Cannula 3.00 01/08/17 06:00 17 01/08/17 05:00 86 10 121/67 99 Nasal Cannula 3.00 01/08/17 04:00 Nasal Cannula 3.00 01/08/17 04:00 86 11 129/75 99 Nasal Cannula 3.00 01/08/17 03:39 98.9 01/08/17 03:00 98 13 120/68 90 Nasal Cannula 3.00 01/08/17 02:00 93 18 123/70 95 Nasal Cannula 3.00 01/08/17 01:00 99 01/08/17 01:00 99 20 120/67 96 Nasal Cannula 3.00 01/08/17 00:00 98.8 01/08/17 00:00 Nasal Cannula 3.00 01/08/17 00:00 98 13 124/62 98 Nasal Cannula 3.00 01/07/17 23:00 87 11 127/70 98 Nasal Cannula 3.00 01/07/17 22:00 96 17 118/68 98 Nasal Cannula 3.00 01/07/17 21:00 100 11 133/77 98 Nasal Cannula 3.00 01/07/17 20:00 98.6 01/07/17 20:00 101 10 137/78 98 Nasal Cannula 3.00 01/07/17 20:00 Nasal Cannula 3.00 01/07/17 19:00 102 01/07/17 19:00 62 15 144/80 98 Nasal Cannula 3.00 01/07/17 18:43 98 Nasal Cannula 3.00 01/07/17 18:00 93 16 147/89 100 Nasal Cannula 4.00 I & O 01/09/17 07:00 Intake Total 580 ml Output Total 800 ml Balance -220 ml Capillary Refill : Less Than 3 SecondsLess Than 3 Seconds General Appearance: Anxious, Mild Distress HEENT: No Pale Conjunctivae (L), No Pale Conjunctivae (R), No Scleral Icterus ( L), No Scleral Icterus (R) Neck: No Tender Midline, No Thyromegaly, Other (pt in c-collar) Respiratory: No Accessory Muscle Use, No Respiratory Distress, Crackles (at bases), Decreased Breath Sounds (minimal bases), Other (chest tender on the left ) Cardiovascular: Regular Rate, Rhythm, No Murmur Peripheral Pulses: 2+ Dorsalis Pedis (R), 2+ Left Dors-Pedis (L), 2+ Radial Pulses (R), 2+ Radial Pulses (L) Gastrointestinal: soft, other (incision c/d/I) Extremity: Normal Capillary Refill, No Calf Tenderness Neurologic/Psychiatric: Alert, Oriented x3 Skin: Tattoos/Piercings, Other (multiple lacerations left eyebrow, forehead, scalp.....small appx 1cm. laceration left lower leg and abrasions on both legs and arms) Results Lab Laboratory Tests 01/08/17 05:19: White Blood Count 15.9H, Red Blood Count 2.51L, Hemoglobin 7.4L, Hematocrit 23L , Mean Corpuscular Volume 91, Mean Corpuscular Hemoglobin 30, Mean Corpuscular Hemoglobin Concent 32, Red Cell Distribution Width 12.4, Platelet Count 318, Mean Platelet Volume 10.1, Neutrophils (%) (Auto) 74, Lymphocytes (%) (Auto) 15 , Monocytes (%) (Auto) 8, Eosinophils (%) (Auto) 2, Basophils (%) (Auto) 1, Neutrophils # (Auto) 11.7H, Lymphocytes # (Auto) 2.4, Monocytes # (Auto) 1.3H, Eosinophils # (Auto) 0.3, Basophils # (Auto) 0.1, Sodium Level 138, Potassium Level 3.7, Chloride Level 101, Carbon Dioxide Level 32, Anion Gap 5, Blood Urea Nitrogen 10, Creatinine 0.61, Estimat Glomerular Filtration Rate > 60, BUN/ Creatinine Ratio 16, Glucose Level 114H, Calcium Level 7.8L, Phosphorus Level 2.4, Magnesium Level 1.8 01/08/17 13:09: Lab Scanned Report Transfusion Reaction Form 01/08/17 16:30: Glucometer 160H Microbiology 01/05/17 Gram Stain - Final, Complete 01/05/17 Sputum Culture - Final, Complete Usual/normal gayatri isolated. 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 Pt told he must start moving more, it will help with bowel function. He will be transferred to the floor. Clinical Quality Measures DVT/VTE Risk/Contraindication: Risk Factor Score Per Nursin RFS Level Per Nursing on Admit: 4+=Very High SHAJI CRAIG DO Jan 08, 2017 17:45
--- NOTE | 2017-01-08 18:30 | Diagnostic Imaging Report ---
INDICATION: Left shoulder at 6:07 p.m. INDICATION: Injury, shoulder pain FINDINGS: There is no fracture, dislocation or acute bony abnormality involving the shoulder joint. The glenohumeral joint is fairly well-maintained. There is only mild degenerative disease at the acromioclavicular joint. The soft tissues are unremarkable. As noted on the chest exam of 01/07/2017, there are multiple rib fractures on the left. This includes slightly displaced fractures of the lateral aspects of the left third and fourth ribs and a fracture of the left fifth rib which is displaced by nearly the width of the rib shaft. There also appears to be fractures of the left sixth and seventh ribs. These are displaced by approximately one-half the width of the rib shaft. The atelectasis/infiltrate and fluid seen previously involving the left lung base is again evident. There is still no sign of a pneumothorax on the left. IMPRESSION: 1. There is no for an acute bony abnormality of the shoulder joint. 2. There are multiple rib fractures of the left ribs. Dictated by: Dictated on workstation # [id number]
[2017-01-09] VITALS: BP 159/84
[2017-01-09] MEDS ORDERED: ALPRAZolam 1 MG (XANAX) TAB PO SCH (04:00)
[2017-01-09] MEDS ORDERED: diphenhydrAMINE 25 MG TAB (BENADRYL) PO ONE (04:00)
[2017-01-09 04:28] VITALS: BP 179/83
[2017-01-09] MEDS: AMPICILLIN/SULBACTAM 3 GM/NS 100 ML IVPB IV SCH ×8 (04:53→23:11)
[2017-01-09] MEDS: RT-ALBUTEROL/IPRATROPIUM 3 ML (DUONEB) VIAL IH SCH ×4 (06:59→19:16)
[2017-01-09 07:15] LABS: BASOPHILS # (AUTO) 0.1 10^3/uL (0.0-0.1); BASOPHILS % (AUTO) 1 % (0-10); EOSINOPHILS # (AUTO) 0.1 10^3/uL (0.0-0.3); EOSINOPHILS % (AUTO) 0 % (0-10); LYMPHOCYTES # (AUTO) 1.5 X 10^3 (1.0-4.0); LYMPHOCYTES % (AUTO) 10 % (12-44); MEAN CORPUSCULAR HEMOGLOBIN 29 PG (25-34); MEAN CORPUSCULAR HGB CONC 32 G/DL (32-36); MEAN CORPUSCULAR VOLUME 91 FL (80-99); MONOCYTES # (AUTO) 1.3 X 10^3 (0.0-1.0); MONOCYTES % (AUTO) 8 % (0-12); NEUTROPHILS # (AUTO) 12.9 X 10^3 (1.8-7.8); NEUTROPHILS % (AUTO) 81 % (42-75); PLATELET COUNT 428 10^3/uL (130-400); RED BLOOD COUNT 2.46 10^6/uL (4.35-5.85); RED CELL DISTRIBUTION WIDTH 12.3 % (10.0-14.5); WHITE BLOOD COUNT 15.8 10^3/uL (4.3-11.0)
[2017-01-09] MEDS: LACTATED RINGERS 1,000 ML IV SCH ×2 (07:36→18:12)
[2017-01-09 07:38] LABS: ANION GAP 8 MMOL/L (5-14); BLOOD UREA NITROGEN 5 MG/DL (7-18); BUN/CREATININE RATIO 9; CALCIUM 8.3 MG/DL (8.5-10.1); CARBON DIOXIDE 30 MMOL/L (21-32); CHLORIDE 102 MMOL/L (98-107); CREATININE SERUM 0.56 MG/DL (0.60-1.30); GFR ESTIMATED > 60; GLUCOSE 126 MG/DL (70-105); MAGNESIUM 1.9 MG/DL (1.8-2.4); PHOSPHORUS 2.2 MG/DL (2.3-4.7); POTASSIUM 3.6 MMOL/L (3.6-5.0); SODIUM 140 MMOL/L (135-145)
[2017-01-09 07:47] LABS: ANISOCYTOSIS SLIGHT; BAND NEUTROPHILS 2 %; BASOPHILS % (MANUAL) 0 %; EOSINOPHILS % (MANUAL) 0 %; LYMPHOCYTES % (MANUAL) 12 %; NEUTROPHILS % (MANUAL) 82 %; POLYCHROMASIA SLIGHT
[2017-01-09 08:30] VITALS: BP 160/90
--- NOTE | 2017-01-09 09:33 | Progress Note (SOAP) ---
Subjective Date Seen by Provider: Jan 08, 2017 Time Seen by Provider: 17:00 Subjective/Events-last exam Pt FELISHA, 01/08/17 approximately 5pm, still in ICU; loosened dressing RUE, pt c/o significant rib fracture pain and post-op Right wrist pain; no other complaints. Objective Exam Vital Signs Date Time Temp Pulse Resp B/P (MAP) Pulse Ox O2 Delivery O2 Flow Rate FiO2 01/09/17 08:30 100.4 100 14 160/90 95 Nasal Cannula 3.00 01/09/17 06:59 98 Nasal Cannula 3.00 01/09/17 04:28 179/83 01/09/17 04:13 105 01/09/17 04:00 98.8 106 22 97 Nasal Cannula 3.50 01/09/17 02:05 98 Nasal Cannula 3.00 01/09/17 00:00 100.4 109 20 159/84 96 Nasal Cannula 3.50 01/08/17 22:30 93 Nasal Cannula 3.00 01/08/17 20:13 95 18 144/76 98 Nasal Cannula 3.50 01/08/17 20:00 Nasal Cannula 3.50 01/08/17 19:15 98 Nasal Cannula 3.00 01/08/17 18:00 17 01/08/17 16:00 95 15 159/94 96 01/08/17 16:00 99.9 Nasal Cannula 3.50 01/08/17 16:00 Nasal Cannula 3.50 01/08/17 15:29 99 Nasal Cannula 3.00 01/08/17 15:00 92 17 90 Nasal Cannula 3.00 01/08/17 14:00 87 15 150/85 87 Nasal Cannula 3.00 01/08/17 13:00 86 16 145/80 87 Nasal Cannula 3.00 01/08/17 13:00 86 01/08/17 12:00 99.9 Nasal Cannula 3.50 01/08/17 12:00 Nasal Cannula 3.50 01/08/17 12:00 99 15 148/85 87 Nasal Cannula 3.00 01/08/17 11:00 92 13 144/83 87 Nasal Cannula 3.00 01/08/17 10:40 96 Nasal Cannula 3.00 01/08/17 10:00 95 18 145/89 87 Nasal Cannula 3.00 I & O 01/10/17 07:00 Intake Total 1000 ml Balance 1000 ml Capillary Refill : Less Than 3 SecondsLess Than 3 Seconds General Appearance: No Apparent Distress Respiratory: No Respiratory Distress Cardiovascular: Regular Rate, Rhythm Peripheral Pulses: 2+ Radial Pulses (R), 2+ Radial Pulses (L) Gastrointestinal: soft Extremity: Other (RUE: expectant post-op edema of the hand/wrist, all compartments soft, good cap refill all digits, motor/sensation grossly intact) Results Lab Laboratory Tests 01/08/17 13:09: Lab Scanned Report Transfusion Reaction Form 01/08/17 16:30: Glucometer 160H 01/09/17 06:53: White Blood Count 15.8H, Red Blood Count 2.46L, Hemoglobin 7.2L, Hematocrit 22L , Mean Corpuscular Volume 91, Mean Corpuscular Hemoglobin 29, Mean Corpuscular Hemoglobin Concent 32, Red Cell Distribution Width 12.3, Platelet Count 428H, Mean Platelet Volume 10.0, Neutrophils (%) (Auto) 81H, Lymphocytes (%) (Auto) 10L, Monocytes (%) (Auto) 8, Eosinophils (%) (Auto) 0, Basophils (%) (Auto) 1, Neutrophils # (Auto) 12.9H, Lymphocytes # (Auto) 1.5, Monocytes # (Auto) 1.3H, Eosinophils # (Auto) 0.1, Basophils # (Auto) 0.1, Neutrophils % (Manual) 82, Lymphocytes % (Manual) 12, Monocytes % (Manual) 4, Eosinophils % (Manual) 0, Basophils % (Manual) 0, Band Neutrophils 2, Nucleated Red Blood Cells 1, Polychromasia SLIGHT, Anisocytosis SLIGHT, Sodium Level 140, Potassium Level 3.6 , Chloride Level 102, Carbon Dioxide Level 30, Anion Gap 8, Blood Urea Nitrogen 5L, Creatinine 0.56L, Estimat Glomerular Filtration Rate > 60, BUN/Creatinine Ratio 9, Glucose Level 126H, Calcium Level 8.3L, Phosphorus Level 2.2L, Magnesium Level 1.9 Microbiology 01/05/17 Gram Stain - Final, Complete 01/05/17 Sputum Culture - Final, Complete Usual/normal gayatri isolated. 01/05/17 Urine Culture - Final, Complete NO GROWTH Assessment/Plan Assessment/Plan Assess & Plan/Chief Complaint S/P ORIF Right distal radius fracture, POD #1 Maintain splint RUE, ice/elevation Strict NWB through Right wrist, may bear weight through Right elbow/forearm only Pain control Mobilization with PT/OT Clinical Quality Measures DVT/VTE Risk/Contraindication: Risk Factor Score Per Nursin RFS Level Per Nursing on Admit: 4+=Very High FRANCISCO ORTEGA DO Jan 09, 2017 09:33
[2017-01-09] MEDS: DOCUSATE SODIUM 100 MG (COLACE) CAP PO SCH (10:48)
--- NOTE | 2017-01-09 11:51 | Physical Therapy Daily Note ---
PT Daily Note-Current Subjective Patient is supine in bed upon PT entering the room. He is resistant to therapy, but he eventually agrees to get out of bed. He is insistent that his and son help him out with moving. Pain Numeric Pain Scale: 10-Worst Possible Pain Location Body Site: Back Appearance Patient appears in distress and volatile. He is left post tx in bed with family and doctor in consult. Mental Status Patient Orientation: Person, Place, Time, Situation Attachments: Oxygen, Hernandez Catheter, IV 4.0 L of O2 Transfers Functional [place] Measure 0=Not Assessed/NA 4=Minimal Assistance 1=Total Assistance 5=Supervision or Setup 2=Maximal Assistance 6=Modified [place] 3=Moderate Assistance 7=Complete IndependenceIRFPAI Quality Coding Scale 6 Independent with activity with or without an assistive device 5 Patient requires set up or clean up by helper. Patient completes activity by themselves 4 Supervision or touching assist (CGA). [place] provide cues , steadying assist 3 The helper provides less than half the effort to complete the activity 2 The helper provides more than half the effort to complete the activity 1 Dependent. The helper does all the effort to complete an activity 7 Patient refused to complete or attempt activity 9 The patient did not perform the activity before the current illness or injury 88 Not attempted due to Medical conditions or safety concerns Transfers (B, C, W/C) (FIM): 3 Scootin Rollin Supine to/from Sit: 3 Sit to/from Stand: 3 Patient requires mod assist due to insecurity and reported pain levels. Weight Bearing Right Lower Extremity: Right Full Weight Bearing Left Lower Extremity: Left Full Weight Bearing Non WB through Right wrist; may bear weight through forearm/elbow only Gait Training Gait (FIM): 2 Distance (FIM): 0=380-35 ft Distance: 100' Gait Level of Assist: 4 Gait Persons Needed: 2 Gait Assistive Device: FWW Patient requires close CGA from 2 PTs due to NWB status of left arm and patient insecurity with standing and walking. Patient requested FWW to move with left UE for safety. Treatments Patient was able to stand and ambulate on this date. Assessment Current Status: Fair Progress Patient is very resistant to PT even though he is informed repeated of how susceptible he is to infections, disease, and respiratory problems associated with not moving. PT will continue to try to transfer and ambulate patient per his compliance and pain tolerance to promote improved respiratory function. PT Group Home Goals Group Home Goals PT [id number] Armor Crewman Goals Time Frame: Jan 22, 2017 Transfers (B,C,W/C) (FIM): 7 Gait (FIM): 7 Gait distance (FIM): 3=150 ft Distance: >300' Gait Level of Assist: 7 Gait Assistive Device: None PT Plan Problem List Problem List: Activity Tolerance, Functional Strength, Safety, Balance, Gait, Transfer, Bed Mobility Treatment/Plan Treatment Plan: Continue Plan of Care Treatment Plan: Bed Mobility, Education, Functional Activity Rosa, Functional Strength, Gait, Safety, Therapeutic Exercise, Transfers Treatment Duration: Jan 22, 2017 Frequency: 11 times per week Estimated Hrs Per Day: .5 hour per day Patient and/or Family Agrees t: Yes Safety Risks/Education Patient Education: Gait Training, Transfer Techniques, Correct Positioning, Safety Issues Teaching Recipient: Patient Teaching Methods: Demonstration, Discussion Response to Teaching: Reinforcement Needed Time/GCodes Time In: 1100 Time Out: 1145 Total Billed Treatment Time: 45 Total Billed Treatment 1 visit FA x2 30 min GT 15 min ENRIQUE ALCANTARA PT Jan 09, 2017 11:51
[2017-01-09 12:00] VITALS: BP 136/76
--- NOTE | 2017-01-09 12:13 | Progress Note ---
Subjective Time Seen by Provider: 11:13 Subjective/Events-last exam Pt seen and examined, still complains of uncontrolled pain. 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 Pt did get up and walked a few steps with PT; still basically refusing to help with his own treatment. Pt denies flatus or BM. Review of Systems General: Night Sweats, Fatigue HEENT: Head Aches Pulmonary: No Dyspnea, No Cough, Pleuritic Chest Pain Cardiovascular: No: Chest Pain, Palpitations Gastrointestinal: Abdominal Pain, Constipation, No: Nausea, Vomiting Objective Exam Vital Signs Date Time Temp Pulse Resp B/P (MAP) Pulse Ox O2 Delivery O2 Flow Rate FiO2 01/09/17 10:31 95 Nasal Cannula 3.00 01/09/17 08:30 100.4 100 14 160/90 95 Nasal Cannula 3.00 01/09/17 08:00 Nasal Cannula 3.00 01/09/17 07:00 102 01/09/17 06:59 98 Nasal Cannula 3.00 01/09/17 04:28 179/83 01/09/17 04:13 105 01/09/17 04:00 98.8 106 22 97 Nasal Cannula 3.50 01/09/17 02:05 98 Nasal Cannula 3.00 01/09/17 00:00 100.4 109 20 159/84 96 Nasal Cannula 3.50 01/08/17 22:30 93 Nasal Cannula 3.00 01/08/17 20:13 95 18 144/76 98 Nasal Cannula 3.50 01/08/17 20:00 Nasal Cannula 3.50 01/08/17 19:15 98 Nasal Cannula 3.00 01/08/17 18:00 17 01/08/17 16:00 95 15 159/94 96 01/08/17 16:00 99.9 Nasal Cannula 3.50 01/08/17 16:00 Nasal Cannula 3.50 01/08/17 15:29 99 Nasal Cannula 3.00 01/08/17 15:00 92 17 90 Nasal Cannula 3.00 01/08/17 14:00 87 15 150/85 87 Nasal Cannula 3.00 01/08/17 13:00 86 16 145/80 87 Nasal Cannula 3.00 01/08/17 13:00 86 I & O 01/10/17 07:00 Intake Total 1000 ml Balance 1000 ml Capillary Refill : Less Than 3 SecondsLess Than 3 Seconds General Appearance: Mild Distress HEENT: No Pale Conjunctivae (L), No Pale Conjunctivae (R), No Scleral Icterus ( L), No Scleral Icterus (R) Neck: No Tender Midline, No Thyromegaly, Other (pt in c-collar) Respiratory: No Respiratory Distress, Decreased Breath Sounds (at bases) Cardiovascular: Regular Rate, Rhythm Peripheral Pulses: 2+ Dorsalis Pedis (R), 2+ Left Dors-Pedis (L), 2+ Radial Pulses (R), 2+ Radial Pulses (L) Gastrointestinal: soft, distended (? minimal) Extremity: Other (RUE: expectant post-op edema of the hand/wrist, all compartments soft, good cap refill all digits, motor/sensation grossly intact) Neurologic/Psychiatric: Alert, Oriented x3 Skin: Tattoos/Piercings, Other (multiple lacerations left eyebrow, forehead, scalp.....small appx 1cm. laceration left lower leg and abrasions on both legs and arms) Results Lab Laboratory Tests 01/08/17 13:09: Lab Scanned Report Transfusion Reaction Form 01/08/17 16:30: Glucometer 160H 01/09/17 06:53: White Blood Count 15.8H, Red Blood Count 2.46L, Hemoglobin 7.2L, Hematocrit 22L , Mean Corpuscular Volume 91, Mean Corpuscular Hemoglobin 29, Mean Corpuscular Hemoglobin Concent 32, Red Cell Distribution Width 12.3, Platelet Count 428H, Mean Platelet Volume 10.0, Neutrophils (%) (Auto) 81H, Lymphocytes (%) (Auto) 10L, Monocytes (%) (Auto) 8, Eosinophils (%) (Auto) 0, Basophils (%) (Auto) 1, Neutrophils # (Auto) 12.9H, Lymphocytes # (Auto) 1.5, Monocytes # (Auto) 1.3H, Eosinophils # (Auto) 0.1, Basophils # (Auto) 0.1, Neutrophils % (Manual) 82, Lymphocytes % (Manual) 12, Monocytes % (Manual) 4, Eosinophils % (Manual) 0, Basophils % (Manual) 0, Band Neutrophils 2, Nucleated Red Blood Cells 1, Polychromasia SLIGHT, Anisocytosis SLIGHT, Sodium Level 140, Potassium Level 3.6 , Chloride Level 102, Carbon Dioxide Level 30, Anion Gap 8, Blood Urea Nitrogen 5L, Creatinine 0.56L, Estimat Glomerular Filtration Rate > 60, BUN/Creatinine Ratio 9, Glucose Level 126H, Calcium Level 8.3L, Phosphorus Level 2.2L, Magnesium Level 1.9 Microbiology 01/05/17 Gram Stain - Final, Complete 01/05/17 Sputum Culture - Final, Complete Usual/normal gayatri isolated. 01/05/17 Urine Culture - Final, Complete NO GROWTH Assessment/Plan Assessment/Plan Assessment/Plan S/P Splenectomy Pain uncontrolled Constipation Anemia Pt was told he must start walking, using IS and helping with his treatment. Also will take out his martino, trying to avoid UTI. We are trying to control his pain, increased his Xanax, increased his INTELLIGENCE OFFICER, will start Gabapentin and then Prazosin at night (for nightmares/PTSD). Will start Dulcolax and hope that his ambulation will help with return of bowel function. I am also trying to get a hold of his Addiction Doctor for some direction on treating his chronic pain. S/P ORIF Right distal radius fracture, POD #1 Maintain splint RUE, ice/elevation Strict NWB through Right wrist, may bear weight through Right elbow/forearm only Pain control Mobilization with PT/OT Clinical Quality Measures DVT/VTE Risk/Contraindication: Risk Factor Score Per Nursin RFS Level Per Nursing on Admit: 4+=Very High SHAJI CRAIG DO Jan 09, 2017 12:13
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
[2017-01-09] MEDS: ALPRAZolam 1 MG (XANAX) TAB PO PRN (12:57)
[2017-01-09] MEDS: GABAPENTIN 300 MG (NEURONTIN) CAP PO SCH ×2 (12:58→20:05)
[2017-01-09] MEDS: ENOXAPARIN 40 MG/0.4 ML (LOVENOX) SYR SC SCH (15:43)
--- NOTE | 2017-01-09 15:51 | Physical Therapy Daily Note ---
PT Daily Note-Current Subjective Patient is laying in bed upon PT entering the room. He does not want to get up, but he eventually agrees to PT. His is present and helps with patient compliance. Pain Numeric Pain Scale: 10-Worst Possible Pain Location Body Site: Back Appearance Patient appears distressed and disturbed. He is left post tx with call light in reach supine in bed. Mental Status Patient Orientation: Person, Place, Time, Situation Attachments: Hernandez Catheter, IV Transfers Functional [place] Measure 0=Not Assessed/NA 4=Minimal Assistance 1=Total Assistance 5=Supervision or Setup 2=Maximal Assistance 6=Modified [place] 3=Moderate Assistance 7=Complete IndependenceIRFPAI Quality Coding Scale 6 Independent with activity with or without an assistive device 5 Patient requires set up or clean up by helper. Patient completes activity by themselves 4 Supervision or touching assist (CGA). [place] provide cues , steadying assist 3 The helper provides less than half the effort to complete the activity 2 The helper provides more than half the effort to complete the activity 1 Dependent. The helper does all the effort to complete an activity 7 Patient refused to complete or attempt activity 9 The patient did not perform the activity before the current illness or injury 88 Not attempted due to Medical conditions or safety concerns Transfers (B, C, W/C) (FIM): 3 Scootin Rollin Supine to/from Sit: 3 Sit to/from Stand: 3 Patient requires mod assist partially due to patient reluctance to move. Weight Bearing Right Lower Extremity: Right Full Weight Bearing Left Lower Extremity: Left Full Weight Bearing Non WB through Right wrist; may bear weight through forearm/elbow only Gait Training Gait (FIM): 3 Distance (FIM): 3=150 ft Distance: 150' Gait Level of Assist: 4 Gait Persons Needed: 2 Gait Assistive Device: FWW Patient ambulates with PT demonstrating close CGA with holding NWB arm during ambulation. Assessment Current Status: Fair Progress Patient was able to ambulate further this p.m. than in the a.m. His compliance has slightly improved with each visit. PT will continue to educate and perform transfers and gait training per patient compliance. PT Holistic Pulser Goals Holistic Pulser Goals PT Holistic Pulser Goals Time Frame: Jan 22, 2017 Transfers (B,C,W/C) (FIM): 7 Gait (FIM): 7 Gait distance (FIM): 3=150 ft Distance: >300' Gait Level of Assist: 7 Gait Assistive Device: None PT Plan Problem List Problem List: Activity Tolerance, Functional Strength, Safety, Balance, Gait, Transfer, Bed Mobility Treatment/Plan Treatment Plan: Continue Plan of Care Treatment Plan: Bed Mobility, Education, Functional Activity Rosa, Functional Strength, Gait, Safety, Therapeutic Exercise, Transfers Treatment Duration: Jan 22, 2017 Frequency: 11 times per week Estimated Hrs Per Day: .5 hour per day Patient and/or Family Agrees t: Yes Safety Risks/Education Patient Education: Gait Training, Transfer Techniques, Reviewed Precautions, Correct Positioning, Safety Issues Teaching Recipient: Patient Teaching Methods: Demonstration, Discussion Response to Teaching: Reinforcement Needed Time/GCodes Time In: 1445 Time Out: 1530 Total Billed Treatment Time: 45 Total Billed Treatment 1 visit GT 15 min FA x 2 30 min ENRIQUE ALCANTARA PT Jan 09, 2017 15:51
[2017-01-09] MEDS: HYDROmorphone PF INJECTION 40 MG in NS (IVPB) 96 ML IV SCH (15:54)
[2017-01-09 16:00] VITALS: BP 164/104
[2017-01-09 20:37] VITALS: BP 110/67
[2017-01-10] VITALS (7 sets, daily range): BP systolic 116–177; BP diastolic 65–92
[2017-01-10] MEDS: LACTATED RINGERS 1,000 ML IV SCH ×2 (03:14→22:56)
[2017-01-10] MEDS: HYDROmorphone PF INJECTION 40 MG in NS (IVPB) 96 ML IV SCH ×2 (04:23→18:10)
[2017-01-10] MEDS: AMPICILLIN/SULBACTAM 3 GM/NS 100 ML IVPB IV SCH ×6 (05:30→17:15)
[2017-01-10 06:27] LABS: BASOPHILS # (AUTO) 0.1 10^3/uL (0.0-0.1); BASOPHILS % (AUTO) 1 % (0-10); EOSINOPHILS # (AUTO) 0.8 10^3/uL (0.0-0.3); EOSINOPHILS % (AUTO) 5 % (0-10); LYMPHOCYTES # (AUTO) 3.3 X 10^3 (1.0-4.0); LYMPHOCYTES % (AUTO) 20 % (12-44); MEAN CORPUSCULAR HEMOGLOBIN 30 PG (25-34); MEAN CORPUSCULAR HGB CONC 32 G/DL (32-36); MEAN CORPUSCULAR VOLUME 92 FL (80-99); MEAN PLATELET VOLUME 10.2 FL (7.4-10.4); MONOCYTES # (AUTO) 2.1 X 10^3 (0.0-1.0); MONOCYTES % (AUTO) 13 % (0-12); NEUTROPHILS % (AUTO) 62 % (42-75); PLATELET COUNT 523 10^3/uL (130-400); RED CELL DISTRIBUTION WIDTH 12.3 % (10.0-14.5); WHITE BLOOD COUNT 16.3 10^3/uL (4.3-11.0)
[2017-01-10 06:42] LABS: ANION GAP 8 MMOL/L (5-14); BLOOD UREA NITROGEN 8 MG/DL (7-18); BUN/CREATININE RATIO 13; CALCIUM 8.1 MG/DL (8.5-10.1); CARBON DIOXIDE 32 MMOL/L (21-32); CHLORIDE 99 MMOL/L (98-107); CREATININE SERUM 0.62 MG/DL (0.60-1.30); GFR ESTIMATED > 60; GLUCOSE 111 MG/DL (70-105); MAGNESIUM 1.7 MG/DL (1.8-2.4); PHOSPHORUS 2.8 MG/DL (2.3-4.7); POTASSIUM 3.4 MMOL/L (3.6-5.0); SODIUM 139 MMOL/L (135-145)
[2017-01-10] MEDS: RT-ALBUTEROL/IPRATROPIUM 3 ML (DUONEB) VIAL IH SCH ×4 (07:45→18:42)
[2017-01-10] MEDS: DOCUSATE SODIUM 100 MG (COLACE) CAP PO SCH (08:02)
[2017-01-10] MEDS: GABAPENTIN 300 MG (NEURONTIN) CAP PO SCH ×3 (08:02→20:42)
[2017-01-10] MEDS: ALPRAZolam 1 MG (XANAX) TAB PO PRN ×2 (08:02→20:42)
[2017-01-10] MEDS ORDERED: LISI1TAB8 PO (09:28)
[2017-01-10] MEDS ORDERED: METO-370 PO (09:28)
--- NOTE | 2017-01-10 09:37 | Physical Therapy Daily Note ---
PT Daily Note-Current Subjective Patient is supine in bed whe nPT enters the room. He is very eager to get out of the hospital on this date. He still suffers from extreme pain as his limiting factor. He agrees to get up out of bed. Pain Numeric Pain Scale: 10-Worst Possible Pain Location Body Site: Back Pain Description: Ache Appearance Patient appears distressed. Patient is left post tx seated in recliner with call light in place. Mental Status Patient Orientation: Person, Place, Time, Situation Attachments: IV Transfers Functional [place] Measure 0=Not Assessed/NA 4=Minimal Assistance 1=Total Assistance 5=Supervision or Setup 2=Maximal Assistance 6=Modified [place] 3=Moderate Assistance 7=Complete IndependenceIRFPAI Quality Coding Scale 6 Independent with activity with or without an assistive device 5 Patient requires set up or clean up by helper. Patient completes activity by themselves 4 Supervision or touching assist (CGA). [place] provide cues , steadying assist 3 The helper provides less than half the effort to complete the activity 2 The helper provides more than half the effort to complete the activity 1 Dependent. The helper does all the effort to complete an activity 7 Patient refused to complete or attempt activity 9 The patient did not perform the activity before the current illness or injury 88 Not attempted due to Medical conditions or safety concerns Transfers (B, C, W/C) (FIM): 4 Scootin Rollin Supine to/from Sit: 4 Sit to/from Stand: 5 Patient can slowly perform transfers with SBA with pain limiting his performance. He required min assist with rising to sit due to insecurity about his back with the transfer. Weight Bearing Right Lower Extremity: Right Full Weight Bearing Left Lower Extremity: Left Full Weight Bearing Non WB through Right wrist; may bear weight through forearm/elbow only Gait Training Gait (FIM): 5 Distance: 300' Gait Level of Assist: 5 Gait Persons Needed: 1 Gait Assistive Device: FWW Patient walks with SBA and FWW. Patient is safe to ambulate only stopping due to pain and dizziness. Patient guides walker with WB left UE and NWB R UE. Assessment Current Status: Good Progress Patient is progressing in his independence with transfers and gait. He is becoming more compliant to PT with every visit. He was also able to toilet himself on this visit. PT will continue to address gait and transfers to improve cardiopulmonary health. PT Tool Dispatcher Goals Tool Dispatcher Goals PT Assisted Goals Time Frame: Jan 22, 2017 Transfers (B,C,W/C) (FIM): 7 Gait (FIM): 7 Gait distance (FIM): 3=150 ft Distance: >300' Gait Level of Assist: 7 Gait Assistive Device: None PT Plan Problem List Problem List: Activity Tolerance, Functional Strength, Safety, Balance, Gait, Transfer, Bed Mobility Treatment/Plan Treatment Plan: Continue Plan of Care Treatment Plan: Bed Mobility, Education, Functional Activity Rosa, Functional Strength, Gait, Safety, Therapeutic Exercise, Transfers Treatment Duration: Jan 22, 2017 Frequency: 11 times per week Estimated Hrs Per Day: .5 hour per day Patient and/or Family Agrees t: Yes Time/GCodes Time In: 844 Time Out: 921 Total Billed Treatment Time: 37 Total Billed Treatment 1 visit GT 20 min FA 17 min BORIS PARRA PT Jan 10, 2017 09:37
[2017-01-10] MEDS ORDERED: CITA40TA11 PO (10:17)
[2017-01-10] MEDS ORDERED: PRAZ5CAP2 PO (10:17)
[2017-01-10] MEDS ORDERED: ZOLP10TA5 PO (10:17)
[2017-01-10] MEDS: ENOXAPARIN 40 MG/0.4 ML (LOVENOX) SYR SC SCH (13:24)
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
--- NOTE | 2017-01-10 15:11 | Physical Therapy Daily Note ---
PT Daily Note-Current Subjective Patient is supine in bed upon PT entering the room. He states he needs to take a shower this afternoon and is worried about the doctor lowering his pain medication. He agrees to PT. Pain Numeric Pain Scale: 9 Location Body Site: Back Appearance Patient appears distressed. He is left post tx with to bathe him in shower. Mental Status Patient Orientation: Person, Place, Time, Situation Attachments: IV Transfers Functional [place] Measure 0=Not Assessed/NA 4=Minimal Assistance 1=Total Assistance 5=Supervision or Setup 2=Maximal Assistance 6=Modified [place] 3=Moderate Assistance 7=Complete IndependenceIRFPAI Quality Coding Scale 6 Independent with activity with or without an assistive device 5 Patient requires set up or clean up by helper. Patient completes activity by themselves 4 Supervision or touching assist (CGA). [place] provide cues , steadying assist 3 The helper provides less than half the effort to complete the activity 2 The helper provides more than half the effort to complete the activity 1 Dependent. The helper does all the effort to complete an activity 7 Patient refused to complete or attempt activity 9 The patient did not perform the activity before the current illness or injury 88 Not attempted due to Medical conditions or safety concerns Transfers (B, C, W/C) (FIM): 4 Scootin Rollin Supine to/from Sit: 4 Sit to/from Stand: 5 Patient requires min assist to rise to sit due to pain. He can perform all other transfers with SBA. Weight Bearing Right Lower Extremity: Right Full Weight Bearing Left Lower Extremity: Left Full Weight Bearing Non WB through Right wrist; may bear weight through forearm/elbow only Gait Training Gait (FIM): 5 Distance: 300' Gait Level of Assist: 5 Gait Persons Needed: 1 Gait Assistive Device: FWW Patient ambulates with reciprocal gait pattern safely with FWW. Assessment Current Status: Good Progress Patient is starting to show greater tolerance for PT as he is motivated to get out of the hospital. PT will continue to address transferring and gait to improve cardiopulmonary function. PT Alf Goals Geotechnical Field Technician Goals PT Alf Goals Time Frame: Jan 22, 2017 Transfers (B,C,W/C) (FIM): 7 Gait (FIM): 7 Gait distance (FIM): 3=150 ft Distance: >300' Gait Level of Assist: 7 Gait Assistive Device: None PT Plan Problem List Problem List: Activity Tolerance, Functional Strength, Safety, Balance, Gait, Transfer, Bed Mobility Treatment/Plan Treatment Plan: Continue Plan of Care Treatment Plan: Bed Mobility, Education, Functional Activity Rosa, Functional Strength, Gait, Safety, Therapeutic Exercise, Transfers Treatment Duration: Jan 22, 2017 Frequency: 11 times per week Estimated Hrs Per Day: .5 hour per day Patient and/or Family Agrees t: Yes Time/GCodes Time In: 1347 Time Out: 1410 Total Billed Treatment Time: 23 Total Billed Treatment 1 visit GT 13 min FA 10 min BORIS PARRA PT Jan 10, 2017 15:11
[2017-01-10] MEDS: HYDROCHLOROTHIAZIDE 12.5 MG (HCTZ) CAP PO SCH (20:42)
[2017-01-10] MEDS: lisINopril 20 MG (ZESTRIL) TAB PO SCH (20:43)
[2017-01-11] VITALS: BP 175/82
[2017-01-11] MEDS: AMPICILLIN/SULBACTAM 3 GM/NS 100 ML IVPB IV SCH ×4 (00:10→05:24)
[2017-01-11 02:00] VITALS: BP 165/75
[2017-01-11 02:05] VITALS: BP 165/75
[2017-01-11 05:29] VITALS: BP 146/73
[2017-01-11] MEDS: RT-ALBUTEROL/IPRATROPIUM 3 ML (DUONEB) VIAL IH SCH ×2 (07:30→10:43)
[2017-01-11 08:00] VITALS: BP 192/98
[2017-01-11] MEDS: ALPRAZolam 1 MG (XANAX) TAB PO PRN (08:49)
[2017-01-11] MEDS: GABAPENTIN 300 MG (NEURONTIN) CAP PO SCH (08:49)
[2017-01-11] MEDS: lisINopril 20 MG (ZESTRIL) TAB PO SCH (08:50)
[2017-01-11] MEDS: HYDROCHLOROTHIAZIDE 12.5 MG (HCTZ) CAP PO SCH (08:50)
[2017-01-11] MEDS: DOCUSATE SODIUM 100 MG (COLACE) CAP PO SCH (08:50)
[2017-01-11] MEDS ORDERED: meTOproloL SUCCINATE 50 MG (TOPROL XL) TAB PO SCH (09:00)
--- NOTE | 2017-01-11 09:52 | Physical Therapy Daily Note ---
PT Daily Note-Current Subjective Patient is supine in bed upon PT entering the room. He states he was up all night. He states he has been getting up and walking around with family present. He insists on smoking a cigarette and getting out of the hospital. He agrees to PT. Pain Numeric Pain Scale: 8 Location Body Site: Back Comment: c/o face numbness, abdominal incisional pain, and back pain Appearance Patient appears distressed. He is left post tx at edge of bed with family present and call light in reach. Mental Status Patient Orientation: Person, Place, Time, Situation Attachments: IV Transfers Functional [place] Measure 0=Not Assessed/NA 4=Minimal Assistance 1=Total Assistance 5=Supervision or Setup 2=Maximal Assistance 6=Modified [place] 3=Moderate Assistance 7=Complete IndependenceIRFPAI Quality Coding Scale 6 Independent with activity with or without an assistive device 5 Patient requires set up or clean up by helper. Patient completes activity by themselves 4 Supervision or touching assist (CGA). [place] provide cues , steadying assist 3 The helper provides less than half the effort to complete the activity 2 The helper provides more than half the effort to complete the activity 1 Dependent. The helper does all the effort to complete an activity 7 Patient refused to complete or attempt activity 9 The patient did not perform the activity before the current illness or injury 88 Not attempted due to Medical conditions or safety concerns Transfers (B, C, W/C) (FIM): 5 Scootin Rollin Supine to/from Sit: 5 Sit to/from Stand: 5 Patient can perform all bed mobility with SBA. His current limitation is pain. Weight Bearing Right Lower Extremity: Right Full Weight Bearing Left Lower Extremity: Left Full Weight Bearing Non WB through Right wrist; may bear weight through forearm/elbow only Gait Training Gait (FIM): 5 Distance: 400' Gait Level of Assist: 5 Gait Persons Needed: 1 Gait Assistive Device: FWW Patient is ambulating with normal reciprocal gait pattern and SBA. Assessment Current Status: Good Progress Patient bed mobility and gait tolerance seems to improve with every visit. PT will continue to address positional changes and gait tolerance. PT Residential Goals Conditioner Tumbler Operator Goals PT Conditioner Tumbler Operator Goals Time Frame: Jan 22, 2017 Transfers (B,C,W/C) (FIM): 7 Gait (FIM): 7 Gait distance (FIM): 3=150 ft Distance: >300' Gait Level of Assist: 7 Gait Assistive Device: None PT Plan Problem List Problem List: Activity Tolerance, Functional Strength, Safety, Balance, Gait, Bed Mobility Treatment/Plan Treatment Plan: Continue Plan of Care Treatment Plan: Bed Mobility, Education, Functional Activity Rosa, Functional Strength, Gait, Safety, Therapeutic Exercise, Transfers Treatment Duration: Jan 22, 2017 Frequency: 11 times per week Estimated Hrs Per Day: .5 hour per day Patient and/or Family Agrees t: Yes Time/GCodes Time In: 845 Time Out: 910 Total Billed Treatment Time: 25 Total Billed Treatment 1 visit GT x 2 25 min BORIS PARRA PT Jan 11, 2017 09:52
--- NOTE | 2017-01-11 10:39 | Discharge Inst-Surgical ---
Discharge Inst-Surgical Consults/Follow Up Patient Instructions: Please keep your splint clean and dry, do not get your splint wet, do not remove your splint; the splint will be removed at your first outpatient follow-up appointment. Orders & Referrals Please follow-up with Dr. Ortega at [facility] in 7-10 days. Please call the office to confirm your appointment. Activity Activity as Tolerated: Yes Do not bear weight with your Right hand/arm; no lifting/carrying with your Right hand/arm. Elevate Extremity: Elevate Above Heart Driving Instructions: No Driving/Refer to Dr. Vann Driving When on Pain Meds: Yes Symptoms to Report to Physicia: Extremity Discoloration, Numbness/Tingling, Swelling Increased, Pain Increased, Fever Over 101 Degrees F If Any Problems/Questions/Issu: Contact Your Physician Skin/Wound Care Infection Signs and Symptoms: Increased Redness, Foul Odor of Wound, Increased Drainage, Increased Swelling, Temperature Above 101 F Wound Care Comment: Keep splint/dressings Right arm clean and dry; do not remove dressings/splint Right arm Operative Area Clean and Dry: Do Not Remove Bandage, Keep Incision Clean/Dry Ice Pack: Ice On and Off Site FRANCISCO ORTEGA DO Jan 11, 2017 10:39
--- NOTE | 2017-01-11 10:52 | Progress Note ---
Subjective Time Seen by Provider: 09:59 Subjective/Events-last exam Pt seen and examined, states again he really wants to go home. "If I need to, I can get better drugs at home". Denies SOB, is ambulating and having small BM's. States he had some trouble last night sleeping, but is ok now. Review of Systems General: No Chills, No Night Sweats Pulmonary: No Cough Cardiovascular: No: Chest Pain Musculoskeletal: other (states face hurts right at nose), shoulder pain (left) , arm pain (right) Objective Exam Vital Signs Date Time Temp Pulse Resp B/P (MAP) Pulse Ox O2 Delivery O2 Flow Rate FiO2 01/11/17 10:43 92 Nasal Cannula 3.00 01/11/17 08:00 99.8 91 18 192/98 (129) 96 Nasal Cannula 3.50 01/11/17 07:30 92 Nasal Cannula 3.00 01/11/17 07:00 84 01/11/17 06:32 16 01/11/17 05:29 89 146/73 (97) 01/11/17 04:00 98.4 86 16 94 Nasal Cannula 3.50 01/11/17 02:30 Nasal Cannula 3.00 01/11/17 02:05 100 14 165/75 (105) 94 Nasal Cannula 3.50 01/11/17 02:00 100 165/75 (105) 01/11/17 01:00 94 01/11/17 00:00 97.9 93 13 175/82 (113) 94 Nasal Cannula 3.50 01/10/17 22:46 Nasal Cannula 3.00 01/10/17 20:43 Nasal Cannula 3.00 01/10/17 20:36 99.9 107 20 140/67 (91) 95 Nasal Cannula 3.50 01/10/17 19:00 106 01/10/17 18:43 90 Nasal Cannula 3.00 01/10/17 18:10 99.5 01/10/17 18:00 16 01/10/17 15:23 99.5 109 16 148/71 (96) 94 Nasal Cannula 3.50 01/10/17 15:08 92 Nasal Cannula 3.00 01/10/17 13:00 104 01/10/17 12:00 100.0 112 16 151/76 (101) 96 Nasal Cannula 3.00 Capillary Refill : Less Than 3 SecondsLess Than 3 Seconds General Appearance: WD/WN, Mild Distress HEENT: No Scleral Icterus (L), No Scleral Icterus (R), Other (he has blood in sclera lateral aspect left eye, and looks like he may have cataract. Standing 15 feet away from pt he can tell me consistently how many fingers I am holding up) Neck: No Tender Midline, No Thyromegaly, Other (pt in c-collar) Respiratory: No Respiratory Distress, Decreased Breath Sounds (at bases) Cardiovascular: Regular Rate, Rhythm Peripheral Pulses: 2+ Dorsalis Pedis (R), 2+ Left Dors-Pedis (L), 2+ Radial Pulses (R), 2+ Radial Pulses (L) Gastrointestinal: soft, distended (? minimal), other (incision is c/d/i) Extremity: Other (RUE: expectant post-op edema of the hand/wrist, all compartments soft, good cap refill all digits, motor/sensation grossly intact) Neurologic/Psychiatric: Alert, Oriented x3 Skin: Normal Color (face looks a little better after pt peeled off scabs and dried blood, good pink skin underneath), Tattoos/Piercings, Other (multiple lacerations left eyebrow, forehead, scalp.....small appx 1cm. laceration left lower leg and abrasions on both legs and arms) Results Lab Microbiology 01/05/17 Gram Stain - Final, Complete 01/05/17 Sputum Culture - Final, Complete Usual/normal gayatri isolated. 01/05/17 Urine Culture - Final, Complete NO GROWTH Assessment/Plan Assessment/Plan Assessment/Plan S/P Splenectomy - Hg stable Pain better controlled Constipation Anemia - secondary to splenic laceration from trauma Plan is to D/C pt home; he must continue walking and using IS. Pt told to continue his home Xanax, Gabapentin and Prazosin. He will be given Rx for Oxycodone to get him through the weekend and then he must start back on his Subaxone and resume treatment with Dr. Hennessy. Pt should continue Dulcolax and hope that his ambulation will help with return of bowel function. Per Ortho post-op care for ORIF Right distal radius fracture Maintain splint and RUE, DO NOT REMOVE, ice/elevation Strict NWB through Right wrist, may bear weight through Right elbow/forearm only Clinical Quality Measures DVT/VTE Risk/Contraindication: Risk Factor Score Per Nursin RFS Level Per Nursing on Admit: 4+=Very High SHAJI CRAIG DO Jan 11, 2017 10:52
[2017-01-11] MEDS ORDERED: OXYC-465 PO (11:05)
--- NOTE | 2017-01-11 11:25 | Discharge Inst-Surgical ---
Discharge Inst-Surgical Depart Medication/Instructions New, Converted or Re-Newed RX: RX Given to Pt/Family Patient Instructions Follow up Appt: Make appointment for 1 week. Instructions: No lifting greater than 10 pounds. No strenuous activity. May shower in 24 hours, no tub bath or soaking. Use incentive spirometer at home as directed. No Smoking Skin/Wound Care: May remove bandages. You need to leave the andrea in place and they will be removed at follow up. Symptoms to Report: Appetite Changes, Extremity Discoloration, Numbness/Tingling, Swelling Increased , Bleeding Excessive, Eyesight Changes, Pain Increased, Urine Color Change, Constipation(Persistent), Fever over 101 degree F, Pain/Pressure in chest, Urinating Difficulty, Cough Up/Vomit Blood, Heart Beat Irreg/Pounding, Pain/ Pressure in jaw, Vaginal Bleeding Increase, Cramps in feet or legs, Lightheadedness, Pain/Pressure in shoulder, Diarrhea(Persistent), Memory Changes Suddenly, Questions/Concerns, Weight gain consecutive days, Dizziness/ Fainting, Nausea/Vomiting, Shortness of Breath, Weight gain over 2 pounds If questions or concerns contact your physician Or seek help at emergency department. Activity Activity Instructions: Avoid Stress to Incision Driving Instructions: No Driving/Refer to Diet Discharge Diet: No Restrictions Diet After 24 Hours: Clear Liquid if Nauseous If Any Problems/Questions/Issu: Contact Your Physician, Go to Emergency Room Skin/Wound Care Infection Signs and Symptoms: Increased Redness, Foul Odor of Wound, Increased Drainage, Skin Itchy or Has a Rash, Increased Swelling, Temperature Above 101 F SHAJI CRAIG DO Jan 11, 2017 11:25
[2017-01-11 13:53] VITALS: BP 192/98
== END 2017-01-11 12:48 | disposition home or self-care (01) | DRG 800 ==
LOC: EDUNIT# 02:12 → ER 02:14 → SDC 03:21 → ICU 06:26 → 4TH 01-08 18:20
PROVIDERS: ADMIT Surgery; ATTEND Surgery
PROC: 07TP0ZZ Resection of Spleen, Open Approach (ICD-10-PCS; principal; 2017-01-05 04:00)
PROC: 0PSH04Z Reposition Right Radius with Internal Fixation Device, Open Approach (ICD-10-PCS; 2017-01-07)
DX: S36.032A Major laceration of spleen, initial encounter (principal); S22.42XA Multiple fractures of ribs, left side, initial encounter for closed fracture; D62 Acute posthemorrhagic anemia; S32.058A Other fracture of fifth lumbar vertebra, initial encounter for closed fracture; S52.511A Displaced fracture of right radial styloid process, initial encounter for closed fracture; S52.571A Other intraarticular fracture of lower end of right radius, initial encounter for closed fracture; S02.32XA Fracture of orbital floor, left side, initial encounter for closed fracture; S02.19XA Other fracture of base of skull, initial encounter for closed fracture; S62.002A Unspecified fracture of navicular [scaphoid] bone of left wrist, initial encounter for closed fracture; V20.4XXA Motorcycle driver injured in collision with pedestrian or animal in traffic accident, initial encounter; I95.9 Hypotension, unspecified; F17.210 Nicotine dependence, cigarettes, uncomplicated; J44.9 Chronic obstructive pulmonary disease, unspecified; I10 Essential (primary) hypertension; K21.9 Gastro-esophageal reflux disease without esophagitis; F31.9 Bipolar disorder, unspecified; F41.9 Anxiety disorder, unspecified; K59.00 Constipation, unspecified
CPT/HCPCS: 36415; 70450; 70486; 71010; 71260; 72125; 73030; 73110; 74177; 76937; 80048; 80076; 80306; 80320; 81000; 82805; 82962; 83605; 83735; 84100; 84484; 85007; 85014; 85018; 85025; 85027; 85379; 85384; 85610; 85730; 86850; 86900; 86901; 86920; 87070; 87088; 87205; 93005; 94640; 94664; 94760; 94799; 96374; 96375; 99291; 99292

== ENCOUNTER 2017-03-18 16:48 | Emergency (ER) | payer BC, MEDICAID ==
[~2017-03-18] VITALS: Ht 180.3 cm; Wt 88.0 kg
[~2017-03-18 16:48] MED LIST changes: +ALPR1TAB7 PO; +ASPI-789 PO; +CITA40TA11 PO; +GABA-488 PO; +IBUP-1780 PO; +METO-370 PO; +PRAZ5CAP2 PO; +RT-ALBUINH IH; -fentaNYL INJECTION 100 MCG/2 ML AMP ONE
[2017-03-18] MEDS ORDERED: LACTATED RINGERS 1,000 ML IV ONE (18:12)
[2017-03-18 18:19] LABS: BILIRUBIN,URINE NEGATIVE (NEGATIVE); CLARITY,URINE SLIGHTLY CLOUDY; COLOR,URINE AMBER; GLUCOSE, URINE (UA) NEGATIVE (NEGATIVE); KETONES,URINE NEGATIVE (NEGATIVE); LEUKOCYTE ESTERASE ,URINE 1+ (NEGATIVE); NITRITE,URINE NEGATIVE (NEGATIVE); PH,URINE 7 (5-9); PROTEIN,URINE 4+ (NEGATIVE); UROBILINOGEN,URINE 1 MG/DL (NORMAL)
[2017-03-18 18:35] LABS: BASOPHILS # (AUTO) 0.2 10^3/uL (0.0-0.1); BASOPHILS % (AUTO) 1 % (0-10); EOSINOPHILS # (AUTO) 0.1 10^3/uL (0.0-0.3); EOSINOPHILS % (AUTO) 1 % (0-10); HEMATOCRIT 37 % (40-54); LYMPHOCYTES # (AUTO) 3.6 X 10^3 (1.0-4.0); LYMPHOCYTES % (AUTO) 21 % (12-44); MEAN CORPUSCULAR HEMOGLOBIN 28 PG (25-34); MEAN CORPUSCULAR HGB CONC 32 G/DL (32-36); MEAN CORPUSCULAR VOLUME 88 FL (80-99); MONOCYTES # (AUTO) 1.3 X 10^3 (0.0-1.0); MONOCYTES % (AUTO) 8 % (0-12); NEUTROPHILS # (AUTO) 12.2 X 10^3 (1.8-7.8); NEUTROPHILS % (AUTO) 70 % (42-75); PLATELET COUNT 565 10^3/uL (130-400); RED BLOOD COUNT 4.23 10^6/uL (4.35-5.85); RED CELL DISTRIBUTION WIDTH 15.3 % (10.0-14.5); WHITE BLOOD COUNT 17.4 10^3/uL (4.3-11.0)
[2017-03-18 18:36] LABS: BACTERIA,URINE NEGATIVE /HPF; RBC,URINE TNTC /HPF
[2017-03-18 18:39] LABS: AMPHETAMINE SCREEN, URINE NEGATIVE (NEGATIVE); BARBITURATE SCREEN URINE NEGATIVE (NEGATIVE); BENZODIAZEPINES SCREEN URINE POSITIVE (NEGATIVE); CANNABINOID SCREEN, URINE NEGATIVE (NEGATIVE); COCAINE SCREEN URINE NEGATIVE (NEGATIVE); METHADONE STAT NEGATIVE (NEGATIVE); METHAMPHETAMINE SCREEN URINE S POSITIVE (NEGATIVE); OPIATE SCREEN URINE NEGATIVE (NEGATIVE); OXYCODONE STAT POSITIVE (NEGATIVE); PROPOXYPHENE STAT NEGATIVE (NEGATIVE); TRICYCLIC ANTIDEPRESSANTS SCRE NEGATIVE (NEGATIVE)
[2017-03-18 18:45] LABS: PROTHROMBIN TIME PATIENT 13.5 SEC (12.2-14.7)
[2017-03-18 18:51] LABS: BAND NEUTROPHILS 0 %; BASOPHILS % (MANUAL) 1 %; EOSINOPHILS % (MANUAL) 2 %; LYMPHOCYTES % (MANUAL) 22 %; MONOCYTES % (MANUAL) 3 %; NEUTROPHILS % (MANUAL) 72 %
[2017-03-18 18:52] LABS: HYPOCHROMASIA SLIGHT
[2017-03-18 18:57] LABS: ALANINE AMINOTRANSFERASE 11 U/L (0-55); ALKALINE PHOSPHATASE 95 U/L (40-136); AMYLASE 27 U/L (25-125); BILIRUBIN,TOTAL 0.3 MG/DL (0.1-1.0); BUN/CREATININE RATIO 19; CALCIUM 9.5 MG/DL (8.5-10.1); CARBON DIOXIDE 28 MMOL/L (21-32); CHLORIDE 100 MMOL/L (98-107); CREATINE KINASE 136 U/L (30-200); CREATININE SERUM 0.77 MG/DL (0.60-1.30); GFR ESTIMATED > 60; GLUCOSE 127 MG/DL (70-105); LIPASE 5 U/L (8-78); MAGNESIUM 2.1 MG/DL (1.8-2.4); POTASSIUM 3.7 MMOL/L (3.6-5.0); SODIUM 141 MMOL/L (135-145); TOTAL PROTEIN 7.7 GM/DL (6.4-8.2)
--- NOTE | 2017-03-18 19:05 | Diagnostic Imaging Report ---
PROCEDURE: CT chest, abdomen, and pelvis without contrast. TECHNIQUE: Multiple contiguous axial images were obtained through the chest, abdomen, and pelvis without the use of intravenous contrast. INDICATION: Fall with rib and abdominal pain and hematuria. Comparison is made study of 01/05/2017. CT chest: There is no evidence of pulmonary contusion or pneumothorax. Unenhanced images of the mediastinum and hilar regions are unremarkable. There are multiple mildly displaced left posterior lateral right fractures which have been present since previous study. No new fracture or malalignment is identified. IMPRESSION: No CT evidence of acute thoracic abnormality. Nonacute left rib fractures are noted. CT abdomen and pelvis: Unenhanced images of the liver reveal no definite laceration or free fluid. Spleen is absent. No gallbladder or pancreatic abnormality is seen. Adrenal glands and kidneys are also stable and unremarkable. No free fluid is seen in the abdomen or pelvis. There is no urinary bladder hyperdensity to suggest intraluminal hematoma. There has been internal fixation of proximal left femur. There is a nonacute superior endplate fracture of L4. IMPRESSION: No CT evidence of acute abdominal or pelvic visceral injury. Spleen is surgically absent and there has been previous internal fixation of left femur. Dictated by: Dictated on workstation # [id number]
[2017-03-18 19:10] LABS: ACETAMINOPHEN < 10 UG/ML (10-30)
--- NOTE | 2017-03-18 19:11 | Diagnostic Imaging Report ---
INDICATION: Fall with left pelvic pain. COMPARISON: Comparison is made to study of 08/15/2016. FINDINGS: Intramedullary nguyen is again seen within the visualized proximal left femur. Otherwise, no fracture or malalignment is identified. Sacroiliac joints and pubic symphysis are also intact. There is no dislocation. IMPRESSION: No acute abnormality or adverse change is seen. Dictated by: Dictated on workstation # [id number]
--- NOTE | 2017-03-18 19:12 | Diagnostic Imaging Report ---
INDICATION: Fall with right wrist pain AP, oblique and lateral views of the right wrist are obtained. Comparison is made to study of 01/05/2017. There has been near complete healing of distal radial fracture seen on the previous study with volar plate in place. There is continued mild displacement of ulnar styloid fracture fragment. No new fracture, dislocation or orthopedic hardware complication is identified. IMPRESSION: Partial healing of distal radial fracture with persistent ulnar styloid fracture. No definite acute abnormality is appreciated. Dictated by: Dictated on workstation # [id number]
[2017-03-18 19:16] LABS: CREATINE KINASE MB 1.4 NG/ML (<6.6); TSH (THYROID ANALYZER) 3.27 UIU/ML (0.35-4.94)
--- NOTE | 2017-03-18 19:16 | Diagnostic Imaging Report ---
INDICATION: Fall with bilateral rib pain Single AP view of the chest is obtained with oblique views of ribs. Comparison is made to the study of 01/07/2017. There are multiple mildly displaced fractures involving the posterolateral aspect of left third through seventh ribs. These are similar to previous study. Stable fractures are also seen involving the posterior aspect of right 11th and 12th ribs. There is no evidence of pneumothorax or acute pleural reaction. No new rib fracture is identified. IMPRESSION: Multiple nonacute upper left and lower right rib fractures similar to previous study. Otherwise bilateral rib examination reveals no displaced fracture or adverse change. Dictated by: Dictated on workstation # [id number]
[2017-03-18] MEDS ORDERED: NS IV 1000 ML 1,000 ML IV ONE (19:42)
[2017-03-18] MEDS ORDERED: NS IV 1000 ML 1,000 ML ONE (19:42)
--- NOTE | 2017-03-18 19:49 | ED Fall/Injury ---
General Chief Complaint: Trauma-Non Activation Stated Complaint: URINATING BLOOD,R WRIST PAIN FROM FALL Nursing Triage Note: PT AMBULATES TO ROOM 9 PT STATES COUPLE DAYS AGO TOOK A HANDFUL OF BACLOFEN, PT STATES ALSO DRANK A BUNCH OF ALCOHOL, THEN SLEPT FOR APPROX 30HOURS, STATES WOKE UP IN BATHROOM HAD FALLEN, HAS L RIB PAIN AND R WRIST PAIN AND IS PEEING BLOOD. PT STATES SMOKED METH APPROX 2 WEEKS AGO. PT IS UNSURE OF TIME LINE OF EVENTS. PT ALSO HAS SUPERFICIAL CUTS TO L FA SELF INFLICTED. SUPERFICIAL CUTS TO CHEST AREA SELF INFLICTED. PT HAS ABRASIONS TO BACK FROM FALL Source: patient Exam Limitations: no limitations History of Present Illness Date Seen by Provider: Mar 18, 2017 Time Seen by Provider: 19:15 Initial Comments Here with report of a variety of complaints. Apparently drinking alcohol overnight Saturday night early Saturday morning related to injury of his dogs and that upset. He then took a bunch of baclofen with number unknown. He apparently slept from 6 a.m. Sat until last evening. During that time he had 2 episodes of incontinence of urine. Noted today that his urine was very dark. Complains of right wrist pain and feels like he is urinating blood. Has had problems with methamphetamine abuse and has been off of it for 2 weeks. Has multiple superficial cuts to the arm and chest. He states that he was not trying to kill himself and is not sure exactly why he did this. This was done while he was under the influence of alcohol and the baclofen. Currently denies suicidality or homicidality. Does complain of pain to the left lower ribs and right wrist. Location Injury Occurred: HOME Occurred: yesterday Severity: moderate Injuries/Pain Location: upper extremity, chest, abdomen Context: unknown Loss of Consciousness: unsure Modifying Factors: Worse With Movement, Improves With Rest Associated Symptoms (Fall): Abdominal Pain, Chest Pain, No Confusion, No Dizziness, No Headache, Muscle Spasms, No Nausea/Vomiting, No Neck Pain, No Shortness of Air, No Slurred Speech Allergies and Home Medications Allergies Coded Allergies: clarithromycin (Unverified Allergy, Unknown, 10/20/13) CAUSES YEAST INFECTION lorazepam (Verified Adverse Reaction, Unknown, 01/05/17) per , pt becomes very agitated/agressive with this medication Home Medications Albuterol Sulfate 1 Puff Puff, 2 PUFF IH Q6H PRN for SHORTNESS OF BREATH, ( Reported) Alprazolam 1 Mg Tablet, 1 MG PO TID, (Reported) Aspirin/Acetaminophen/Caffeine 1 Each Tablet, 2 TAB PO Q8H PRN for MIGRAINE, ( Reported) Buprenorphine HCl 8 Mg Tab.subl, 8 MG SL QID, (Reported) Citalopram Hydrobromide 40 Mg Tablet, 40 MG PO DAILY, (Reported) Gabapentin 300 Mg Capsule, 300 MG PO TID PRN for PAIN, (Reported) Ibuprofen 800 Mg Tablet, 800 MG PO Q6H PRN for PAIN-MILD, (Reported) Lisinopril/Hydrochlorothiazide 1 Each Tablet, 1 TAB PO BID, (Reported) LAST FILLED #60 11-18-16 Metoprolol Succinate 50 Mg Tab.er.24h, 50 MG PO DAILY, (Reported) LAST FILLED #30 11-18-16 Oxycodone HCl/Acetaminophen 1 Each Tablet, 1 EACH PO Q6H, #30 Prescribed by: SHAJI CRAIG on 01/11/17 1105 Prazosin HCl 5 Mg Capsule, 10 MG PO HS, (Reported) TAKES 2 (5MG) CAPSULES Zolpidem Tartrate 10 Mg Tablet, 10 MG PO HS PRN for SLEEP, (Reported) Constitutional: see HPI, No chills, No fever Eyes: No Symptoms Reported, Denies Blurred Vision, Denies Pain Ears, Nose, Mouth, Throat: denies ear pain, denies nose pain Respiratory: No cough, No short of breath Cardiovascular: see HPI, chest pain (lower chest wall), No edema, No palpitations Gastrointestinal: abdominal pain (LUQ) Genitourinary: see HPI, hematuria Musculoskeletal: see HPI, joint pain, joint swelling, muscle pain Skin: lesions Psychiatric/Neurological: Anxiety, Emotional Problems All Other Systems Reviewed Negative Unless Noted: Yes Past Tksfcpv-Ornsyf-Bweylz Hx Patient Social History Alcohol Use: Regular Use Number of Drinks Today: 0 Recreational Drug Use: Yes (METH) Type Used: Cigarettes 2nd Hand Smoke Exposure: Yes Recent Foreign Travel: No Contact w/Someone Who Travel: No Recent Infectious Disease Expo: No Recent Hopitalizations: No Physical Abuse: No Sexual Abuse: No Immunizations Up To Date Tetanus Booster (TDap): Less than 5yrs Surgeries History of Surgeries: Yes (l femur, jaw, ) Surgeries: Orthopedic Respiratory History of Respiratory Disorde: Yes Respiratory Disorders: COPD Cardiovascular History of Cardiac Disorders: Yes Cardiac Disorders: Hypertension Neurological History of Neurological Disord: No Reproductive System Hx Reproductive Disorders: No Sexually Transmitted Disease: No Genitourinary History of Genitourinary Disor: No Gastrointestinal History of Gastrointestinal Di: Yes Gastrointestinal Disorders: Gastroesophageal Reflux Musculoskeletal History of Musculoskeletal Dis: Yes Musculoskeletal Disorders: Degenerate Disk Disease, Chronic Back Pain Endocrine History of Endocrine Disorders: No HEENT History of HEENT Disorders: No Cancer History of Cancer: No Psychosocial History of Psychiatric Problem: Yes Behavioral Health Disorders: Anxiety, Bipolar, Depression Suicide Risk Score: 0 Integumentary History of Skin or Integumenta: No Blood Transfusions History of Blood Disorders: No Reviewed Nursing Assessment Reviewed/Agree w Nursing PMH: Yes Family Medical History Significant Family History: No Pertinent Family Hx, Diabetes, Hypertension Family Medial History: Patient reports no known family medical history. Physical Exam Vital Signs Vital Sign - Last 12Hours 03/18/17 18:00 Temp 97.9 Pulse 105 Resp 20 B/P (MAP) 172/106 (128) Pulse Ox 96 Capillary Refill : Less Than 3 Seconds General Appearance: WD/WN, no apparent distress HEENT: PERRL/EOMI, pharynx normal Neck: full range of motion, supple Cardiovascular: regular rate, rhythm, no murmur Respiratory: lungs clear, normal breath sounds, other (tenderness along the left lower rib margin laterally) Gastrointestinal: soft, tenderness (mild tenderness along the left upper quadrant) Back: normal inspection, no CVA tenderness, no vertebral tenderness Extremities: non-tender, normal inspection Neurologic/Psychiatric: alert, oriented x 3 Skin: normal color, warm/dry [place] Coma Score Best Eye Response: (4) Open Spontaneously Best Verbal Response: (5) Oriented Best Motor Response: (6) Obeys Commands Progress/Results/Core Measures Results/Orders Lab Results Laboratory Tests Test 03/18/17 18:00 03/18/17 18:26 Range/Units Urine Color JAIDEN H Urine Clarity SLIGHTLY CLOUDY Urine pH 7 5-9 Urine Specific [place] 1.015 L 1.016-1.022 Urine Protein 4+ NEGATIVE Urine Glucose (UA) NEGATIVE NEGATIVE Urine Ketones NEGATIVE NEGATIVE Urine Nitrite NEGATIVE NEGATIVE Urine Bilirubin NEGATIVE NEGATIVE Urine Urobilinogen 1 NORMAL MG/DL Urine Leukocyte Esterase 1+ H NEGATIVE Urine RBC (Auto) 5+ H NEGATIVE Urine RBC TNTC H /HPF Urine WBC 5-10 H /HPF Urine Crystals NONE /LPF Urine Bacteria NEGATIVE /HPF Urine Casts NONE /LPF Urine Mucus NEGATIVE /LPF Urine Culture Indicated YES Urine Opiates Screen NEGATIVE NEGATIVE Urine Oxycodone Screen POSITIVE H NEGATIVE Urine Methadone Screen NEGATIVE NEGATIVE Urine Propoxyphene Screen NEGATIVE NEGATIVE Urine Barbiturates Screen NEGATIVE NEGATIVE Ur Tricyclic Antidepressants Screen NEGATIVE NEGATIVE Urine Phencyclidine Screen NEGATIVE NEGATIVE Urine Amphetamines Screen NEGATIVE NEGATIVE Urine Methamphetamines Screen POSITIVE H NEGATIVE Urine Benzodiazepines Screen POSITIVE H NEGATIVE Urine Cocaine Screen NEGATIVE NEGATIVE Urine Cannabinoids Screen NEGATIVE NEGATIVE White Blood Count 17.4 H 4.3-11.0 10^3/uL Red Blood Count 4.23 L 4.35-5.85 10^6/uL Hemoglobin 12.0 L 13.3-17.7 G/DL Hematocrit 37 L 40-54 % Mean Corpuscular Volume 88 80-99 FL Mean Corpuscular Hemoglobin 28 25-34 PG Mean Corpuscular Hemoglobin Concent 32 32-36 G/DL Red Cell Distribution Width 15.3 H 10.0-14.5 % Platelet Count 565 H 130-400 10^3/uL Mean Platelet Volume 10.0 7.4-10.4 FL Neutrophils (%) (Auto) 70 42-75 % Lymphocytes (%) (Auto) 21 12-44 % Monocytes (%) (Auto) 8 0-12 % Eosinophils (%) (Auto) 1 0-10 % Basophils (%) (Auto) 1 0-10 % Neutrophils # (Auto) 12.2 H 1.8-7.8 X 10^3 Lymphocytes # (Auto) 3.6 1.0-4.0 X 10^3 Monocytes # (Auto) 1.3 H 0.0-1.0 X 10^3 Eosinophils # (Auto) 0.1 0.0-0.3 10^3/uL Basophils # (Auto) 0.2 H 0.0-0.1 10^3/uL Neutrophils % (Manual) 72 % Lymphocytes % (Manual) 22 % Monocytes % (Manual) 3 % Eosinophils % (Manual) 2 % Basophils % (Manual) 1 % Band Neutrophils 0 % Hypochromasia SLIGHT Prothrombin Time 13.5 12.2-14.7 SEC INR Comment 1.0 0.8-1.4 Activated Partial Thromboplast Time 34 24-35 SEC Sodium Level 141 135-145 MMOL/L Potassium Level 3.7 3.6-5.0 MMOL/L Chloride Level 100 98-107 MMOL/L Carbon Dioxide Level 28 21-32 MMOL/L Anion Gap 13 5-14 MMOL/L Blood Urea Nitrogen 15 7-18 MG/DL Creatinine 0.77 0.60-1.30 MG/DL Estimat Glomerular Filtration Rate > 60 BUN/Creatinine Ratio 19 Glucose Level 127 H 70-105 MG/DL Calcium Level 9.5 8.5-10.1 MG/DL Magnesium Level 2.1 1.8-2.4 MG/DL Total Bilirubin 0.3 0.1-1.0 MG/DL Aspartate Amino Transf (AST/SGOT) 16 5-34 U/L Alanine Aminotransferase (ALT/SGPT) 11 0-55 U/L Alkaline Phosphatase 95 40-136 U/L Total Creatine Kinase 136 30-200 U/L Creatine Kinase MB 1.4 <6.6 NG/ML Troponin I < 0.30 <0.30 NG/ML Total Protein 7.7 6.4-8.2 GM/DL Albumin 4.0 3.2-4.5 GM/DL Amylase Level 27 25-125 U/L Lipase 5 L 8-78 U/L TSH [place] Testing 3.27 0.35-4.94 UIU/ML Acetaminophen Level < 10 L 10-30 UG/ML Serum Alcohol < 10 <10 MG/DL My Orders Orders - EDINSON RICHARD MD Ns Iv 1000 Ml (Sodium Chloride 0.9%) (03/18/17 19:42) Ns Iv 1000 Ml (Sodium Chloride 0.9%) (03/18/17 19:42) Ketorolac Injection (Toradol Injection) (03/18/17 19:59) Medications Given in ED Current Medications Medications Dose Ordered Sig/Alex Route Start Time Stop Time Status Last Admin Dose Admin Lactated Ringer's 1,000 ml @ 0 mls/hr Q0M ONCE IV 03/18/17 18:12 03/18/17 18:15 DC 03/18/17 18:35 1,000 MLS/HR Sodium Chloride 1,000 ml @ 0 mls/hr Q0M ONCE IV 03/18/17 19:42 03/18/17 19:43 DC 03/18/17 19:49 1,000 MLS/HR Vital Signs/I&O Vital Sign - Last 12Hours 03/18/17 18:00 Temp 97.9 Pulse 105 Resp 20 B/P (MAP) 172/106 (128) Pulse Ox 96 Blood Pressure Mean: 128 Progress Note : Progress Note Seen and evaluated. CT chest, abdomen and pelvis without contrast ordered due to concerns about renal dysfunction related to brown urine noted on collection. IV, labs and UA ordered. LR 1 L bolus ordered. This will be repeated with 1 L normal saline. Monitor patient. 2049: Overall better. Patient did receive Toradol 30 mg IV. We will apply a wrist splint to the right wrist and have him follow up with his ortho doctor. Discharge home with return precautions. Patient verbalize understanding instructions and agreement with plan. His urine color has improved markedly after fluids. ECG Initial ECG Impression Date: Mar 18, 2017 Initial ECG Impression Time: 18:39 Initial ECG Rate: 93 Initial ECG Rhythm: Normal Sinus Comment Sinus rhythm with left axis deviation. No evidence of ST elevation OK. No previous medical for comparison. Interpreted by me. Diagnostic Imaging Diagonstic Imaging: Xray Plain Films/CT/US/NM/MRI: pelvis Comments VIA [facility]. [place], [place] NAME: SHANDRA BUTT [facility] REC#: [id number] PT STATUS: REG ER : 1970 PHYSICIAN: GEOVANNA MENDOZA DO ADMIT DATE: 03/18/17/ER Draft Date of Exam:03/18/17 PELVIS INDICATION: Fall with left pelvic pain. COMPARISON: Comparison is made to study of 08/15/2016. FINDINGS: Intramedullary nguyen is again seen within the visualized proximal left femur. Otherwise, no fracture or malalignment is identified. Sacroiliac joints and pubic symphysis are also intact. There is no dislocation. IMPRESSION: No acute abnormality or adverse change is seen. Dictated on workstation # [id number] Dict: 03/18/171906 Trans: 03/18/171910 [id number] Interpreted by: RHONDA FRANKEL MD Electronically signed by: Diagonstic Imaging: Xray Plain Films/CT/US/NM/MRI: other Comments [facility]. [place], [place] NAME: SHANDRA BUTT [facility] REC#: [id number] PT STATUS: REG ER : 1970 PHYSICIAN: GEOVANNA MENDOZA DO ADMIT DATE: 03/18/17/ER Draft Date of Exam:03/18/17 RIBS/BILAT WITH CHEST INDICATION: Fall with bilateral rib pain Single AP view of the chest is obtained with oblique views of ribs. Comparison is made to the study of 01/07/2017. There are multiple mildly displaced fractures involving the posterolateral aspect of left third through seventh ribs. These are similar to previous study. Stable fractures are also seen involving the posterior aspect of right 11th and 12th ribs. There is no evidence of pneumothorax or acute pleural reaction. No new rib fracture is identified. IMPRESSION: Multiple nonacute upper left and lower right rib fractures similar to previous study. Otherwise bilateral rib examination reveals no displaced fracture or adverse change. Dictated on workstation # [id number] Dict: 03/18/171909 Trans: 03/18/171915 [facility] [id number] Interpreted by: RHONDA FRANKEL MD Electronically signed by: Diagonstic Imaging: Xray Plain Films/CT/US/NM/MRI: other Comments [facility]. [place], [place] NAME: SHANDRA BUTT [facility] REC#: [id number] PT STATUS: REG ER : 1970 PHYSICIAN: ADEEL CASTILLO ADMIT DATE: 03/18/17/ER Draft Date of Exam:03/18/17 WRIST, RIGHT, 3 VIEWS OR MORE INDICATION: Fall with right wrist pain AP, oblique and lateral views of the right wrist are obtained. Comparison is made to study of 01/05/2017. There has been near complete healing of distal radial fracture seen on the previous study with volar plate in place. There is continued mild displacement of ulnar styloid fracture fragment. No new fracture, dislocation or orthopedic hardware complication is identified. IMPRESSION: Partial healing of distal radial fracture with persistent ulnar styloid fracture. No definite acute abnormality is appreciated. Dictated on workstation # [id number] Dict: 03/18/171907 Trans: 03/18/171911 [facility] [id number] Interpreted by: RHONDA FRANKEL MD Electronically signed by: [facility]ans[facility] Imaging: CT Plain Films/CT/US/NM/MRI: chest, abdomen, pelvis Comments VIA [facility]. [place], [place] NAME: SHANDRA BUTT [facility] REC#: [id number] PT STATUS: REG ER : 1970 PHYSICIAN: GEOVANNA MENDOZA DO ADMIT DATE: 03/18/17/ER Draft Date of Exam:03/18/17 CT CHEST/ABDOMEN/PELVIS WO PROCEDURE: CT chest, abdomen, and pelvis without contrast. TECHNIQUE: Multiple contiguous axial images were obtained through the chest, abdomen, and pelvis without the use of intravenous contrast. INDICATION: Fall with rib and abdominal pain and hematuria. Comparison is made study of 01/05/2017. CT chest: There is no evidence of pulmonary contusion or pneumothorax. Unenhanced images of the mediastinum and hilar regions are unremarkable. There are multiple mildly displaced left posterior lateral right fractures which have been present since previous study. No new fracture or malalignment is identified. IMPRESSION: No CT evidence of acute thoracic abnormality. Nonacute left rib fractures are noted. CT abdomen and pelvis: Unenhanced images of the liver reveal no definite laceration or free fluid. Spleen is absent. No gallbladder or pancreatic abnormality is seen. Adrenal glands and kidneys are also stable and unremarkable. No free fluid is seen in the abdomen or pelvis. There is no urinary bladder hyperdensity to suggest intraluminal hematoma. There has been internal fixation of proximal left femur. There is a nonacute superior endplate fracture of L4. IMPRESSION: No CT evidence of acute abdominal or pelvic visceral injury. Spleen is surgically absent and there has been previous internal fixation of left femur. Dictated on workstation # [id number] Dict: 03/18/17 185 Trans: 03/18/171903 [id number] Interpreted by: RHONDA FRANKEL MD Electronically signed by: Departure Impression Impression: Primary Impression: Abdominal pain Qualified Codes: R10.12 - Left upper quadrant pain Additional Impressions: Strain of right wrist Qualified Codes: S66.911A - Strain of unspecified muscle, fascia and tendon at wrist and hand level, right hand, initial encounter Contusion of rib on left side Qualified Codes: S20.212A - Contusion of left front wall of thorax, initial encounter Hematuria Qualified Codes: R31.21 - Asymptomatic microscopic hematuria Disposition: 01 HOME, SELF-CARE Condition: Improved Departure-Patient Inst. Decision time for Depature: 20:55 Referrals: NO,LOCAL PHYSICIAN (PCP/Family) Primary Care Physician Patient Instructions: Blood in the Urine (Hematuria), Adult (DC), Contusion (DC ), Muscle Strain (DC), Wrist Sprain (DC) Add. Discharge Instructions: All discharge instructions reviewed with patient and/or family. Voiced understanding. Take medications as directed. Follow-up with your DrJaja for recheck and further evaluation. I highly recommend that she follow up with addiction treatment services at [facility] as discussed as I do believe that they can be very beneficial in your care. You may take ibuprofen 800 mg every 8 hours as needed for pain. Return for worsening, fever, vomiting, weakness, breathing problems or other concerns as needed. EDINSON RICHARD MD Mar 18, 2017 19:49
[2017-03-18] MEDS ORDERED: KETOROLAC 30 MG/ML VIAL IVP STA (19:59)
[2017-03-18 21:01] VITALS: BP 164/97
== END 2017-03-18 21:01 | disposition home or self-care (01) ==
LOC: EDUNIT# 16:48 → ER 16:50
DX: S66.911A Strain of unspecified muscle, fascia and tendon at wrist and hand level, right hand, initial encounter (principal); S20.212A Contusion of left front wall of thorax, initial encounter; R10.12 Left upper quadrant pain; R31.9 Hematuria, unspecified; F41.9 Anxiety disorder, unspecified; F31.9 Bipolar disorder, unspecified; I10 Essential (primary) hypertension; K21.9 Gastro-esophageal reflux disease without esophagitis; J44.9 Chronic obstructive pulmonary disease, unspecified; F15.90 Other stimulant use, unspecified, uncomplicated; Z77.22 Contact with and (suspected) exposure to environmental tobacco smoke (acute) (chronic); Z79.82 Long term (current) use of aspirin; Z88.2 Allergy status to sulfonamides; Z88.1 Allergy status to other antibiotic agents; W19.XXXA Unspecified fall, initial encounter; Y92.009 Unspecified place in unspecified non-institutional (private) residence as the place of occurrence of the external cause
CPT/HCPCS: 36415; 71111; 71250; 72170; 73110; 74176; 80053; 80306; 80320; 80329; 81000; 82150; 82550; 82553; 83690; 83735; 84443; 84484; 85007; 85027; 85610; 85730; 87088; 93005; 93041; 96361; 96374

== ENCOUNTER 2017-11-13 16:02 | Emergency (ER) | payer MEDICAID ==
[~2017-11-13] VITALS: Ht 154.9 cm; Wt 92.5 kg
[2017-11-13] MEDS ORDERED: KETOROLAC 30 MG/ML VIAL IM ONE (17:00)
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
--- NOTE | 2017-11-13 17:22 | Diagnostic Imaging Report ---
EXAMINATION: Portable chest. INDICATION: Left-sided chest and rib pain. COMPARISON: Comparison is made with a prior study from October 09, 2017. FINDINGS: There are multiple prior left-sided posterior rib fractures which were also demonstrated on the previous exam. There does, however, appear to likely be a new lateral left fifth rib fracture which appears to be more acute. There is some patchy atelectasis at the left base. The lungs appear clear. There is no pneumothorax. There is no pleural collection. Heart size appears normal. IMPRESSION: 1. Multiple remote left posterolateral rib fractures are present. There also, however, is a suggestion that there may be a more acute fracture of the left fifth rib. 2. Patchy left base atelectasis. No pleural collection or pneumothorax. Dictated by: Dictated on workstation # [id number]
--- NOTE | 2017-11-13 17:24 | Diagnostic Imaging Report ---
INDICATION: Chest pain. FINDINGS: Old healed rib deformities on the left noted. No acute or unhealed fracture deformity is identified. No lung contusion, pneumothorax, or hemothorax. No free air beneath the diaphragms. IMPRESSION: Old rib deformities chronic. No acute finding. Dictated by: Dictated on workstation # [id number]
[2017-11-13 18:00] LABS: BASOPHILS # (AUTO) 0.1 10^3/uL (0.0-0.1); BASOPHILS % (AUTO) 1 % (0-10); EOSINOPHILS # (AUTO) 0.7 10^3/uL (0.0-0.3); EOSINOPHILS % (AUTO) 6 % (0-10); HEMATOCRIT 37 % (40-54); HEMOGLOBIN 12.1 G/DL (13.3-17.7); LYMPHOCYTES # (AUTO) 4.1 X 10^3 (1.0-4.0); LYMPHOCYTES % (AUTO) 32 % (12-44); MEAN CORPUSCULAR HEMOGLOBIN 30 PG (25-34); MEAN CORPUSCULAR HGB CONC 33 G/DL (32-36); MEAN CORPUSCULAR VOLUME 93 FL (80-99); MEAN PLATELET VOLUME 10.1 FL (7.4-10.4); MONOCYTES # (AUTO) 1.6 X 10^3 (0.0-1.0); MONOCYTES % (AUTO) 12 % (0-12); NEUTROPHILS # (AUTO) 6.5 X 10^3 (1.8-7.8); NEUTROPHILS % (AUTO) 50 % (42-75); PLATELET COUNT 414 10^3/uL (130-400); RED BLOOD COUNT 4.01 10^6/uL (4.35-5.85); RED CELL DISTRIBUTION WIDTH 14.9 % (10.0-14.5)
[2017-11-13 18:20] LABS: ALANINE AMINOTRANSFERASE 18 U/L (0-55); ALKALINE PHOSPHATASE 105 U/L (40-136); BILIRUBIN,TOTAL 0.3 MG/DL (0.1-1.0); BUN/CREATININE RATIO 18; CALCIUM 9.2 MG/DL (8.5-10.1); CARBON DIOXIDE 28 MMOL/L (21-32); CHLORIDE 103 MMOL/L (98-107); CREATININE SERUM 0.79 MG/DL (0.60-1.30); GFR ESTIMATED > 60; GLUCOSE 103 MG/DL (70-105); POTASSIUM 4.2 MMOL/L (3.6-5.0); SODIUM 141 MMOL/L (135-145); TOTAL PROTEIN 6.8 GM/DL (6.4-8.2)
[2017-11-13] MEDS ORDERED: CYCL10TA9 PO (18:33)
[2017-11-13 18:50] VITALS: BP 159/96
== END 2017-11-13 18:50 | disposition home or self-care (01) ==
LOC: EDUNIT# 16:02 → ER 16:03
DX: S22.32XA Fracture of one rib, left side, initial encounter for closed fracture (principal); J98.11 Atelectasis; J44.9 Chronic obstructive pulmonary disease, unspecified; I10 Essential (primary) hypertension; F41.9 Anxiety disorder, unspecified; F31.9 Bipolar disorder, unspecified; K21.9 Gastro-esophageal reflux disease without esophagitis; F15.10 Other stimulant abuse, uncomplicated; F12.10 Cannabis abuse, uncomplicated; F17.210 Nicotine dependence, cigarettes, uncomplicated; Z88.0 Allergy status to penicillin; Z88.8 Allergy status to other drugs, medicaments and biological substances; Z79.82 Long term (current) use of aspirin; Z91.5 Personal history of self-harm; Z90.81 Acquired absence of spleen; Z79.52 Long term (current) use of systemic steroids; V10.4XXA Pedal cycle driver injured in collision with pedestrian or animal in traffic accident, initial encounter
CPT/HCPCS: 36415; 71045; 71100; 80053; 85025; 86141; 94664

== ENCOUNTER → 2018-01-07 | Emergency (ER) | payer MEDICAID ==
[~2018-01-07] VITALS: Ht 177.8 cm; Wt 99.8 kg
[~2018-01-07] MED LIST changes: +LACTATED RINGERS 1,000 ML IV ONE; +TETANUS,DIPTH,PERTUSS P/F (BOOSTRIX) 0.5 ML VIAL IM STA
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
[2018-01-07 23:02] LABS: BILIRUBIN,URINE NEGATIVE (NEGATIVE); CLARITY,URINE CLEAR; COLOR,URINE YELLOW; GLUCOSE, URINE (UA) NEGATIVE (NEGATIVE); KETONES,URINE NEGATIVE (NEGATIVE); LEUKOCYTE ESTERASE ,URINE NEGATIVE (NEGATIVE); NITRITE,URINE NEGATIVE (NEGATIVE); PH,URINE 8 (5-9); PROTEIN,URINE 1+ (NEGATIVE); UROBILINOGEN,URINE NORMAL (NORMAL)
[2018-01-07 23:11] LABS: BACTERIA,URINE TRACE /HPF; SQUAMOUS EPITHELIAL CELL,UR RARE /HPF
[2018-01-07 23:15] LABS: BASOPHILS # (AUTO) 0.1 10^3/uL (0.0-0.1); BASOPHILS % (AUTO) 1 % (0-10); EOSINOPHILS # (AUTO) 0.8 10^3/uL (0.0-0.3); EOSINOPHILS % (AUTO) 7 % (0-10); HEMATOCRIT 41 % (40-54); HEMOGLOBIN 13.3 G/DL (13.3-17.7); LYMPHOCYTES % (AUTO) 25 % (12-44); MEAN CORPUSCULAR HEMOGLOBIN 29 PG (25-34); MEAN CORPUSCULAR HGB CONC 33 G/DL (32-36); MEAN CORPUSCULAR VOLUME 89 FL (80-99); MEAN PLATELET VOLUME 9.9 FL (7.4-10.4); MONOCYTES % (AUTO) 8 % (0-12); NEUTROPHILS % (AUTO) 59 % (42-75); PLATELET COUNT 480 10^3/uL (130-400); RED BLOOD COUNT 4.59 10^6/uL (4.35-5.85); RED CELL DISTRIBUTION WIDTH 14.4 % (10.0-14.5); WHITE BLOOD COUNT 11.9 10^3/uL (4.3-11.0)
[2018-01-07 23:22] LABS: AMPHETAMINE SCREEN, URINE NEGATIVE (NEGATIVE); BARBITURATE SCREEN URINE NEGATIVE (NEGATIVE); BENZODIAZEPINES SCREEN URINE POSITIVE (NEGATIVE); CANNABINOID SCREEN, URINE NEGATIVE (NEGATIVE); COCAINE SCREEN URINE NEGATIVE (NEGATIVE); METHADONE STAT NEGATIVE (NEGATIVE); METHAMPHETAMINE SCREEN URINE S NEGATIVE (NEGATIVE); OPIATE SCREEN URINE NEGATIVE (NEGATIVE); OXYCODONE STAT NEGATIVE (NEGATIVE); PROPOXYPHENE STAT NEGATIVE (NEGATIVE); TRICYCLIC ANTIDEPRESSANTS SCRE NEGATIVE (NEGATIVE)
[2018-01-07 23:27] LABS: PROTHROMBIN TIME PATIENT 12.9 SEC (12.2-14.7)
[2018-01-07 23:34] LABS: ALANINE AMINOTRANSFERASE 18 U/L (0-55); ALBUMIN 4.1 GM/DL (3.2-4.5); ALKALINE PHOSPHATASE 105 U/L (40-136); BILIRUBIN,TOTAL 0.2 MG/DL (0.1-1.0); BUN/CREATININE RATIO 13; CALCIUM 9.4 MG/DL (8.5-10.1); CARBON DIOXIDE 29 MMOL/L (21-32); CHLORIDE 100 MMOL/L (98-107); CREATININE SERUM 0.85 MG/DL (0.60-1.30); GFR ESTIMATED > 60; GLUCOSE 100 MG/DL (70-105); POTASSIUM 4.2 MMOL/L (3.6-5.0); SODIUM 139 MMOL/L (135-145); TOTAL PROTEIN 7.3 GM/DL (6.4-8.2)
[2018-01-08 00:30] VITALS: BP 127/87
--- NOTE | 2018-01-08 07:39 | Diagnostic Imaging Report ---
INDICATION: Right-sided chest pain. COMPARISON: 11/13/2017. FINDINGS: There are multiple old healed left upper rib fractures that are unchanged. No new displaced rib fractures. No pleural effusion or pneumothorax. Chronic left basilar subsegmental atelectasis is unchanged. Otherwise, lungs are clear. IMPRESSION: 1. No acute cardiopulmonary process. 2. No acute rib fracture. Multiple old healed left upper rib fractures. Dictated by: Dictated on workstation # [id number]
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
== END | disposition home or self-care (01) ==
LOC: EDUNIT# 22:14 → ER 22:15
DX: S09.90XA Unspecified injury of head, initial encounter (principal); S01.81XA Laceration without foreign body of other part of head, initial encounter; J44.9 Chronic obstructive pulmonary disease, unspecified; I10 Essential (primary) hypertension; K21.9 Gastro-esophageal reflux disease without esophagitis; F41.9 Anxiety disorder, unspecified; F31.9 Bipolar disorder, unspecified; Z91.5 Personal history of self-harm; Z90.81 Acquired absence of spleen; Z88.0 Allergy status to penicillin; Z88.8 Allergy status to other drugs, medicaments and biological substances; Z79.51 Long term (current) use of inhaled steroids; Z79.82 Long term (current) use of aspirin; Z79.52 Long term (current) use of systemic steroids; Z77.22 Contact with and (suspected) exposure to environmental tobacco smoke (acute) (chronic); Z23 Encounter for immunization; Y09 Assault by unspecified means
CPT/HCPCS: 36415; 70450; 70486; 71045; 72125; 80053; 80306; 80320; 81000; 85025; 85610; 85730; 90715

== ENCOUNTER 2018-06-19 20:32 | Emergency (ER) | payer MEDICAID ==
[~2018-06-19] VITALS: Ht 177.8 cm; Wt 95.3 kg
[~2018-06-19 20:32] MED LIST changes: -LACTATED RINGERS 1,000 ML IV ONE; -TETANUS,DIPTH,PERTUSS P/F (BOOSTRIX) 0.5 ML VIAL IM STA
--- NOTE | 2018-06-19 21:24 | Diagnostic Imaging Report ---
INDICATION: Right wrist pain after fall. AP, oblique and lateral views of the right wrist are obtained. There is no previous study for comparison. FINDINGS: Volar fixation plate is seen along the distal radius. There is chronic appearing irregularity of the ulnar styloid process likely related to old fracture. There is lucency in the scaphoid waist which is also likely related to old injury with degenerative changes at the scapholunate interval. No definite new fracture or orthopedic hardware complication is seen. IMPRESSION: Overall appearance is suggestive of old wrist injury with internal fixation, however, no definite acute abnormality is identified. If old study is available, comparison would be of use. Dictated by: Dictated on workstation # [id number]
--- NOTE | 2018-06-19 21:47 | ED Upper Extremity ---
General Chief Complaint: Upper Extremity Stated Complaint: RT WRIST PAIN Nursing Triage Note: RIGHT WRIST PAIN. PT. REPORTED THAT HE HAS HAD SURGERY ON THE WRIST BUT FELL LAST NIGHT AND NOW IT HURTS. Nursing Sepsis Screen: No Definite Risk Source: patient Exam Limitations: no limitations History of Present Illness Date Seen by Provider: June 19, 2018 Time Seen by Provider: 21:00 Initial Comments Patient presents c/ c/o right wrist pain p/ falling last PM. Apparently has had chronic problems c/ the same wrist p/ fracturing it and having to had an ORIF on it. Denies any other injuries from the fall. Onset: yesterday (last PM) Severity: moderate (10) Pain/Injury Location: right wrist Method of Injury: fell Modifying Factors: Improves With Other (none) Allergies and Home Medications Allergies Coded Allergies: clarithromycin (Unverified Allergy, Unknown, 10/20/13) CAUSES YEAST INFECTION lorazepam (Verified Adverse Reaction, Unknown, 01/05/17) per , pt becomes very agitated/agressive with this medication Home Medications Albuterol Sulfate 1 Puff Puff, 2 PUFF IH Q6H PRN for SHORTNESS OF BREATH, ( Reported) Alprazolam 1 Mg Tablet, 1 MG PO TID, (Reported) Aspirin/Acetaminophen/Caffeine 1 Each Tablet, 2 TAB PO Q8H PRN for MIGRAINE, ( Reported) Buprenorphine HCl 8 Mg Tab.subl, 8 MG SL QID, (Reported) Citalopram Hydrobromide 40 Mg Tablet, 40 MG PO DAILY, (Reported) Cyclobenzaprine HCl 10 Mg Tablet, 10 MG PO Q8H Prescribed by: GEOVANNA MENDOZA on 10/09/172132 Cyclobenzaprine HCl 10 Mg Tablet, 10 MG PO Q8H PRN for SPASMS Prescribed by: YOANA HALL on 11/13/17 1833 Gabapentin 300 Mg Capsule, 300 MG PO TID PRN for PAIN, (Reported) Ibuprofen 800 Mg Tablet, 800 MG PO Q6H PRN for PAIN-MILD, (Reported) Lisinopril/Hydrochlorothiazide 1 Each Tablet, 1 TAB PO BID, (Reported) LAST FILLED #60 11-18-17 Metoprolol Succinate 50 Mg Tab.er.24h, 50 MG PO DAILY, (Reported) LAST FILLED #30 108-17 Oxycodone HCl/Acetaminophen 1 Each Tablet, 1 EACH PO Q6H Prescribed by: SHAJI CRAIG on 01/11/17 1105 Prazosin HCl 5 Mg Capsule, 10 MG PO HS, (Reported) TAKES 2 (5MG) CAPSULES Prednisone 20 Mg Tab, 40 MG PO DAILY Prescribed by: GEOVANNA MENDOZA on 10/09/17 2133 Zolpidem Tartrate 10 Mg Tablet, 10 MG PO HS PRN for SLEEP, (Reported) Patient Home Medication List Home Medication List Reviewed: Yes Review of Systems Constitutional: see HPI Musculoskeletal: see HPI, other (right wrist pain) All Other Systems Reviewed Negative Unless Noted: Yes (Negative excepted noted.) Past Uzsyyrd-Kosqie-Wrmceu Hx Patient Social History Drug of Choice: METH, THC, "EVERYTHING" Type Used: Cigarettes 2nd Hand Smoke Exposure: Yes Recent Foreign Travel: No Contact w/Someone Who Travel: No Recent Infectious Disease Expo: No Recent Hopitalizations: No Physical Abuse: No Sexual Abuse: No Mistreated: No Fear: No Immunizations Up To Date Tetanus Booster (TDap): Less than 5yrs Seasonal Allergies Seasonal Allergies: No Past Medical History Surgeries: Yes (LEFT FEMUR FRACTURE/ORIF; LEFT WRIST FX/ORIF; SPLENECTOMY 2016) Orthopedic Respiratory: Yes COPD Cardiac: Yes Hypertension Neurological: Yes Concussion Reproductive Disorders: No Sexually Transmitted Disease: No Genitourinary: No Gastrointestinal: Yes (SPLENECTOMY) Gastroesophageal Reflux Musculoskeletal: Yes Degenerate Disk Disease, Chronic Back Pain, Fractures Endocrine: No HEENT: Yes (DENTAL DECAY) Cancer: No Psychosocial: Yes Anxiety, Suicide Attempts, Bipolar, Depression Integumentary: No Blood Disorders: No Family Medical History Patient reports no known family medical history. No Pertinent Family Hx, Diabetes, Hypertension Physical Exam Vital Signs Vital Signs - First Documented 06/19/18 20:46 Temp 98.3 Pulse 88 Resp 16 B/P (MAP) 143/97 (112) Pulse Ox 98 O2 Delivery Room Air Capillary Refill : Less Than 3 Seconds Height, Weight, BMI Height: 5'10.00" Weight: 210lbs. 9.0oz. [id number]; 27.9 BMI Method:Stated General Appearance: WD/WN, mild distress Cardiovascular: regular rate, rhythm Respiratory: no respiratory distress Wrist: Yes limited ROM (right wrist), Yes pain (right wrist), Yes soft tissue tenderness (right wrist) Hand: normal inspection Neurologic/Psychiatric: no motor/sensory deficits, alert, oriented x 3 Skin: warm/dry Progress/Results/Core Measures Results/Orders My Orders Vital Signs/I&O Blood Pressure Mean: 112 Diagnostic Imaging Diagonstic Imaging: Xray Plain Films/CT/US/NM/MRI: other (right wrist; nothing acute) Departure Impression Primary Impression: Sprain of wrist Additional Impression: Fall Disposition: HOME, SELF-CARE Condition: Stable Departure-Patient Inst. Decision time for Depature: 21:43 Referrals: [facility] [place] Instructions: Wrist Sprain (DC) Add. Discharge Instructions: All discharge instructions reviewed with patient and/or family. Voiced understanding. RECOMMEND 600 mg OF IBUPROFEN EVERY 6 HOURS FOR WRIST PAIN/ SWELLING. MIGHT BENEFIT FROM FROM UP WITH AN CHILD CARE WORKER REGARDING YOUR WRIST AND CONCERNS. RECOMMEND GETTING ESTABLISHED WITH A REGULAR DOCTOR TO DIRECT YOUR MEDICAL CARE AND CONCERNS THAT ARE OUTSIDE THE SCOPE OF THE EMERGENCY DEPARTMENT. THEY COULD PROBABLY ASSIST YOU IN OBTAINING FOLLOW UP ORTHO CARE WELL. WES BATES DO June 19, 2018 21:47
[2018-06-19 21:50] VITALS: BP 143/97
== END 2018-06-19 21:51 | disposition home or self-care (01) ==
LOC: EDUNIT# 20:32 → ER FS 20:33
DX: S63.91XA Sprain of unspecified part of right wrist and hand, initial encounter (principal); J44.9 Chronic obstructive pulmonary disease, unspecified; I10 Essential (primary) hypertension; K21.9 Gastro-esophageal reflux disease without esophagitis; F41.9 Anxiety disorder, unspecified; F31.9 Bipolar disorder, unspecified; F15.10 Other stimulant abuse, uncomplicated; F12.10 Cannabis abuse, uncomplicated; Z90.81 Acquired absence of spleen; Z91.5 Personal history of self-harm; Z98.890 Other specified postprocedural states; Z87.820 Personal history of traumatic brain injury; Z88.1 Allergy status to other antibiotic agents; Z79.82 Long term (current) use of aspirin; Z79.52 Long term (current) use of systemic steroids; Z77.22 Contact with and (suspected) exposure to environmental tobacco smoke (acute) (chronic); Z88.8 Allergy status to other drugs, medicaments and biological substances; W19.XXXA Unspecified fall, initial encounter
CPT/HCPCS: 73110

== ENCOUNTER 2022-08-26 17:16 | Emergency (ER) | payer SELFPAY ==
[~2022-08-26] VITALS: Ht 182 cm; Wt 102.0 kg
[~2022-08-26 17:16] MED LIST changes: +ALBU8.5H6 IH; -ASPI-789 PO; +ASPI1TAB23 PO; -CITA40TA11 PO; +CITA40TA13 PO; +CYCL10TA25 PO; -CYCL10TA9 PO; +LISI1TAB46 PO; -METO-370 PO; +METO50TA7 PO; -OXYC-465 PO; +OXYC-556 PO; -RT-ALBUINH IH
--- NOTE | 2022-08-26 17:31 | ED Upper Extremity ---
General Chief Complaint: Upper Extremity Stated Complaint: SOA Nursing Triage Note: RIGHT SHOULDER AND ARM PAIN FOR X3 WEEKS. STATES HE TOOK VALIUM 10MG PO BEFORE COMING TO THE ER. VALIUM WAS NOT HIS. ALSO STATES HE IS ON METH. Source: patient Exam Limitations: no limitations History of Present Illness Date Seen by Provider: Aug 26, 2022 Time Seen by Provider: 17:28 Initial Comments Patient is a 51-year-old male who presents to ED with right shoulder pain. Right shoulder pain for the past 2 weeks. Pain described as sharp. Initially pain was intermittent shooting from the right side neck down to the right arm. Reports some numbness and tingling to the hands. He has associated shortness of breath. Reports pain on palpation of the right shoulder. Pain located to the internal upper arm that radiates to the right scapula and right-sided neck. Denies of any loss of motor function. Patient has associated shortness of breath without any specific chest pain. No history of coronary artery disease. History of hypertension not currently on medication. History of smoking. Patient took 10 mg of Valium right before arrival. Denies any alcohol use. Reports smoking meth daily. States he relapsed from substance abuse this past March secondary to loss of a loved 1. Denies abdominal pain, vomiting, diarrhea, headache, dizziness. Denies any traumas or falls. Allergies and Home Medications Allergies Coded Allergies: clarithromycin (Unverified Allergy, Unknown, 10/20/13) CAUSES YEAST INFECTION lorazepam (Verified Adverse Reaction, Unknown, 01/05/17) per , pt becomes very agitated/agressive with this medication Patient Home Medication List Home Medication List Reviewed: Yes Albuterol Sulfate (Ventolin Hfa) 1 Puff Puff, 2 PUFF IH Q6H PRN for SHORTNESS OF BREATH, (Reported) Entered as Reported by: FELICIANO ESTEVEZ on 01/06/171656 Alprazolam (Alprazolam) 1 Mg Tablet, 1 MG PO TID, (Reported) Entered as Reported by: FELICIANO ESTEVEZ on 01/06/171656 Aspirin/Acetaminophen/Caffeine (Excedrin Migraine Caplet) 1 Each Tablet, 2 TAB PO Q8H PRN for MIGRAINE, (Reported) Entered as Reported by: FELICIANO ESTEVEZ on 01/06/171656 Buprenorphine HCl (Buprenorphine HCl) 8 Mg Tab.subl, 8 MG SL QID, (Reported) Entered as Reported by: FELICIANO ESTEVEZ on 01/06/171656 Citalopram Hydrobromide (Citalopram HBr) 40 Mg Tablet, 40 MG PO DAILY, (Reported) Entered as Reported by: NEO FLOWERS on 01/10/171016 Cyclobenzaprine HCl (Cyclobenzaprine HCl) 10 Mg Tablet, 10 MG PO Q8H Prescribed by: GEOVANNA MENDOZA on 10/09/172132 Cyclobenzaprine HCl (Cyclobenzaprine HCl) 10 Mg Tablet, 10 MG PO Q8H PRN for SPASMS Prescribed by: YOANA HALL on 11/13/171832 Gabapentin (Gabapentin) 300 Mg Capsule, 300 MG PO TID PRN for PAIN, (Reported) Entered as Reported by: FELICIANO ESTEVEZ on 01/06/171656 Ibuprofen (Ibuprofen) 800 Mg Tablet, 800 MG PO Q6H PRN for PAIN-MILD, (Reported) Entered as Reported by: FELICIANO ESTEVEZ on 01/06/171656 Lisinopril/Hydrochlorothiazide (Lisinopril-Hctz 20-12.5 mg Tab) 1 Each Tablet, 1 TAB PO BID, (Reported) Entered as Reported by: NEO FLOWERS on 01/10/17927 Lisinopril/Hydrochlorothiazide (Lisinopril-Hctz 20-12.5 mg Tab) 20 Mg-12.5 Mg Tablet, 1 EACH PO DAILY Prescribed by: AMY SHAH on 08/26/221834 Metoprolol Succinate (Metoprolol Succinate) 50 Mg Tab.er.24h, 50 MG PO DAILY, (Reported) Entered as Reported by: NEO FLOWERS on 01/10/17927 Naproxen (Naproxen) 500 Mg Tablet, 500 MG PO Q12H Prescribed by: AMY SHAH on 08/26/221834 Oxycodone HCl/Acetaminophen (Oxycodone-Acetaminophen 10-325) 1 Each Tablet, 1 EACH PO Q6H Prescribed by: SHAJI CRAIG on 01/11/17 1105 Prazosin HCl (Prazosin HCl) 5 Mg Capsule, 10 MG PO HS, (Reported) Entered as Reported by: ENO FLOWERS on 01/10/17 1017 Prednisone (Prednisone) 20 Mg Tab, 40 MG PO DAILY Prescribed by: GEOVANNA MENDOZA on 10/09/172132 Zolpidem Tartrate (Zolpidem Tartrate) 10 Mg Tablet, 10 MG PO HS PRN for SLEEP, (Reported) Entered as Reported by: NEO FLOWERS on 01/10/17 1017 Review of Systems Constitutional: No chills, No diaphoresis EENTM: No hearing loss, No ear pain, No blurred vision, No double vision, No vision loss, No mouth pain, No mouth swelling, No throat pain, No throat swelling Respiratory: No cough; short of breath Cardiovascular: No chest pain Gastrointestinal: No abdominal pain, No diarrhea, No nausea, No vomiting Genitourinary: No decreased output, No discharge Musculoskeletal: No back pain; joint pain, muscle pain All Other Systems Reviewed Negative Unless Noted: Yes Past Xblvqzi-Ysimtd-Ckskmv Hx Patient Social History Tobacco Use?: Yes Smoking Status: Current Everyday Smoker Substance use?: Yes Substance type: Methamphetamine Additional substance use comme: TAKES PILLS THAT IS NOT HIS Alcohol Frequency: Once in a while Immunizations Up To Date Tetanus Booster (TDap): Less than 5yrs Seasonal Allergies Seasonal Allergies: No Past Medical History Surgeries: Yes (LEFT FEMUR FRACTURE/ORIF; LEFT WRIST FX/ORIF; SPLENECTOMY 12/2016) Orthopedic Respiratory: Yes COPD Cardiac: Yes Hypertension Neurological: Yes Concussion Reproductive Disorders: No Sexually Transmitted Disease: No Genitourinary: No Gastrointestinal: Yes (SPLENECTOMY) Gastroesophageal Reflux Musculoskeletal: Yes Degenerate Disk Disease, Chronic Back Pain, Fractures Endocrine: No HEENT: Yes (DENTAL DECAY) Cancer: No Psychosocial: Yes Anxiety, Suicide Attempts, Bipolar, Depression Integumentary: No Blood Disorders: No Family Medical History Patient reports no known family medical history. No Pertinent Family Hx, Diabetes, Hypertension Physical Exam Vital Signs Vital Signs - First Documented 08/26/22 17:19 Temp 37.6 Pulse 107 Resp 16 B/P (MAP) 214/179 (191) Pulse Ox 97 O2 Delivery Room Air Capillary Refill : Less Than 3 Seconds Height, Weight, BMI Height: 5'10.00" Weight: 210lbs. 9.0oz. 95.161922kp; 30.00 BMI Method:Stated General Appearance: WD/WN, no apparent distress HEENT: PERRL/EOMI, normal ENT inspection, TMs normal, pharynx normal Neck: non-tender, full range of motion, supple, normal inspection Cardiovascular: no edema, no gallop, no JVD, tachycardia Respiratory: chest non-tender, lungs clear, normal breath sounds, no respiratory distress, no accessory muscle use Gastrointestinal: normal bowel sounds, non tender, soft, no organomegaly Back: normal inspection, no CVA tenderness, no vertebral tenderness Shoulder: pain (Pain with range of motion of the right shoulder. Stone Carver strength 5 5. Neurovascular intact) Elbow/Forearm: Right Wrist: Yes normal inspection, Yes non-tender, Yes no evidence of injury, Yes normal ROM Hand: normal inspection, non-tender, no evidence of injury Neurologic/Psychiatric: agronomy location manager II-XII nml as tested, no motor/sensory deficits, alert, normal mood/affect, oriented x 3 Skin: normal color, warm/dry Progress/Results/Core Measures Results/Orders Lab Results Laboratory Tests Test 08/26/22 17:39 Range/Units White Blood Count 10.7 4.3-11.0 10^3/uL Red Blood Count 5.08 4.30-5.52 10^6/uL Hemoglobin 14.6 13.3-17.7 g/dL Hematocrit 46 40-54 % Mean Corpuscular Volume 90 80-99 fL Mean Corpuscular Hemoglobin 29 25-34 pg Mean Corpuscular Hemoglobin Concent 32 32-36 g/dL Red Cell Distribution Width 13.9 10.0-14.5 % Platelet Count 391 130-400 10^3/uL Mean Platelet Volume 10.2 9.0-12.2 fL Immature Granulocyte % (Auto) 0 % Neutrophils (%) (Auto) 56 42-75 % Lymphocytes (%) (Auto) 30 12-44 % Monocytes (%) (Auto) 7 0-12 % Eosinophils (%) (Auto) 6 0-10 % Basophils (%) (Auto) 1 0-10 % Neutrophils # (Auto) 6.0 1.8-7.8 10^3/uL Lymphocytes # (Auto) 3.2 1.0-4.0 10^3/uL Monocytes # (Auto) 0.8 0.0-1.0 10^3/uL Eosinophils # (Auto) 0.6 H 0.0-0.3 10^3/uL Basophils # (Auto) 0.1 0.0-0.1 10^3/uL Immature Granulocyte # (Auto) 0.0 0.0-0.1 10^3/uL Prothrombin Time 12.1 L 12.2-14.7 SEC INR Comment 0.9 0.8-1.4 Activated Partial Thromboplast Time 35 24-35 SEC Sodium Level 143 135-145 MMOL/L Potassium Level 3.6 3.6-5.0 MMOL/L Chloride Level 104 98-107 MMOL/L Carbon Dioxide Level 30 21-32 MMOL/L Anion Gap 9 5-14 MMOL/L Blood Urea Nitrogen 20 H 7-18 MG/DL Creatinine 0.83 0.60-1.30 MG/DL Estimat Glomerular Filtration Rate 105 BUN/Creatinine Ratio 24 Glucose Level 113 H 70-105 MG/DL Calcium Level 9.2 8.5-10.1 MG/DL Corrected Calcium 9.1 8.5-10.1 MG/DL Magnesium Level 2.2 1.6-2.4 MG/DL Total Bilirubin 0.2 0.1-1.0 MG/DL Aspartate Amino Transf (AST/SGOT) 17 5-34 U/L Alanine Aminotransferase (ALT/SGPT) 17 0-55 U/L Alkaline Phosphatase 90 40-136 U/L Troponin I < 0.028 <0.028 NG/ML B-Type Natriuretic Peptide 38.9 <100.0 PG/ML Total Protein 7.3 6.4-8.2 GM/DL Albumin 4.1 3.2-4.5 GM/DL Lipase 12 8-78 U/L My Orders Orders - KEAGAN HANSEN PA Cbc With Automated Diff (08/26/22 17:24) Chest 1 View, Ap/Pa Only (08/26/22 17:24) Ekg Tracing (08/26/22 17:24) Comprehensive Metabolic Panel (08/26/22 17:24) Protime With Inr (08/26/22 17:24) Partial Thromboplastin Time (08/26/22 17:24) Lipase (08/26/22 17:24) Bnp [place] (08/26/22 17:24) Troponin I [place] (08/26/22 17:24) Ct Cervical Spine Wo (08/26/22 17:24) Magnesium (08/26/22 17:24) Ketorolac Injection (Toradol Injection) (08/26/22 18:45) Medications Given in ED Current Medications Medications Dose Ordered Sig/Alex Route Start Time Stop Time Status Last Admin Dose Admin Ketorolac Tromethamine 30 mg ONCE ONCE IM 08/26/22 18:45 08/26/22 18:42 DC 08/26/22 18:41 30 MG Vital Signs/I&O 08/26/22 08/26/22 17:19 18:42 Temp 37.6 Pulse 107 98 Resp 16 16 B/P (MAP) 214/179 (191) 195/117 Pulse Ox 97 96 O2 Delivery Room Air Room Air Blood Pressure Mean: 191 Comment Sinus tachycardia, 101 bpm, QRS duration 99 MS, QTc 391 MS. Departure Communication (PCP) Reviewed previous ER visits, H&P, lab testing. Differential diagnosis of cervical muscle strain, cervical radiculopathy, acute coronary syndrome. Complaining of right shoulder pain radiation to right elbow. Sharp pain in the right sided neck that radiates down to the right arm. History of drug use. reports smoking meth with last use today. States he has shortness of breath when this pain starts. Shortness of breath below her right axilla. He is concerned that he is having a cardiac event. Does have a history of hypertension and has been on lisinopril hydrochlorothiazide in the past but not currently taking. Patient is hypertensive on arrival as high 214/179. He states this is chronically high. Denies headache, dizziness, abdominal pain, change in urination, visual changes. Due to his complaint CT scan of the cervical neck, cardiac work-up was initiated. He was tachycardic but states he just used meth. No current chest pain or shortness of breath. Denies any swelling or redness or bruising of his right arm. Pain appears to be worse with any movement of the right shoulder and arm. States initially started with cramping. denies of any injection in the right arm. EKG showed sinus tachycardia at 101 bpm. No evidence of ST elevation or depression. Normal troponin and BNP. Chest x-ray unremarkable. Lab work was generalized unremarkable. CT scan of the cervical spine negative for bulging disc, lesions. On exam of the right arm he had no tenderness on palpation. No swelling, bruising or redness. Patient states that shortness of breath occurs underneath the right axilla when the pain occurs of the right shoulder. He has no specific chest pain orcough. Discussed potentially getting a ultrasound of his right arm rule out DVT. Patient does not want to wait for a ultrasound. Patient is eagerly wanting to leave. He does have equal pulses bilateral upper extremity. Patient did mention he injected in his right arm 3 weeks ago after talkign with him. Does not appear to be any cellulitis or evidence of DVT however due to the pain and injection would need to rule out DVT. Discussed my concern for his elevated blood pressure that needs to be better controlled. Patient acknowledg es. Patient states he needed to go. Recommended outpatient ultrasound of his right arm. Will discharge with his hydrochlorothiazide and lisinopril. Discussed substance abuse cessation. If any worsening symptoms return back to ED. Need to follow-up for further evaluation of this right arm. Patient blood pressure at discharge at 195/117. Does not want me to address this any further. No focal neural deficits Impression Primary Impression: Neck pain Additional Impression: HTN (hypertension) Disposition: 01 HOME, SELF-CARE Condition: Stable Departure-Patient Inst. Decision time for Depature: 18:27 Referrals: KATY SHARIF APRN (PCP) Primary Care Physician [facility] (Family) Primary Care Physician Patient Instructions: Neck Pain ED Scripts Naproxen (Naproxen) 500 Mg Tablet 500 MG PO Q12H for 10 Days, #20 TAB Prov: KEAGAN HANSEN 08/26/22 Lisinopril/Hydrochlorothiazide (Lisinopril-Hctz 20-12.5 mg Tab) 20 Mg-12.5 Mg Tablet 1 EACH PO DAILY, #30 TAB Prov: KEAGAN HANSEN 08/26/22 KEAGAN HANSEN Aug 26, 2022 17:31
[2022-08-26 17:45] LABS: BASOPHILS # (AUTO) 0.1 10^3/uL (0.0-0.1); BASOPHILS % (AUTO) 1 % (0-10); EOSINOPHILS # (AUTO) 0.6 10^3/uL (0.0-0.3); EOSINOPHILS % (AUTO) 6 % (0-10); HEMATOCRIT 46 % (40-54); HEMOGLOBIN 14.6 g/dL (13.3-17.7); LYMPHOCYTES # (AUTO) 3.2 10^3/uL (1.0-4.0); LYMPHOCYTES % (AUTO) 30 % (12-44); MEAN CORPUSCULAR HEMOGLOBIN 29 pg (25-34); MEAN CORPUSCULAR HGB CONC 32 g/dL (32-36); MEAN CORPUSCULAR VOLUME 90 fL (80-99); MEAN PLATELET VOLUME 10.2 fL (9.0-12.2); MONOCYTES # (AUTO) 0.8 10^3/uL (0.0-1.0); MONOCYTES % (AUTO) 7 % (0-12); NEUTROPHILS % (AUTO) 56 % (42-75); PLATELET COUNT 391 10^3/uL (130-400); WHITE BLOOD COUNT 10.7 10^3/uL (4.3-11.0)
[2022-08-26 17:53] LABS: ALBUMIN 4.1 GM/DL (3.2-4.5)
[2022-08-26 17:54] LABS: CHLORIDE 104 MMOL/L (98-107); POTASSIUM 3.6 MMOL/L (3.6-5.0); SODIUM 143 MMOL/L (135-145)
[2022-08-26 17:55] LABS: CALCIUM 9.2 MG/DL (8.5-10.1)
[2022-08-26 17:56] LABS: GLUCOSE 113 MG/DL (70-105); TOTAL PROTEIN 7.3 GM/DL (6.4-8.2)
[2022-08-26 17:57] LABS: CARBON DIOXIDE 30 MMOL/L (21-32)
[2022-08-26 17:58] LABS: BILIRUBIN,TOTAL 0.2 MG/DL (0.1-1.0)
[2022-08-26 17:59] LABS: ALKALINE PHOSPHATASE 90 U/L (40-136); CREATININE SERUM 0.83 MG/DL (0.60-1.30); GFR ESTIMATED 105; INR 0.9 (0.8-1.4); PROTHROMBIN TIME PATIENT 12.1 SEC (12.2-14.7)
[2022-08-26 18:01] LABS: BUN/CREATININE RATIO 24
[2022-08-26 18:02] LABS: ALANINE AMINOTRANSFERASE 17 U/L (0-55)
[2022-08-26 18:03] LABS: MAGNESIUM 2.2 MG/DL (1.6-2.4)
[2022-08-26 18:04] LABS: LIPASE 12 U/L (8-78)
--- NOTE | 2022-08-26 18:17 | Diagnostic Imaging Report ---
INDICATION: Chest pain Portable chest 6:01 PM Heart and mediastinum are normal. Lungs are clear. There are no effusions or pneumothoraces. IMPRESSION: Negative chest. Dictated by: Dictated on workstation # [id number]
--- NOTE | 2022-08-26 18:25 | Diagnostic Imaging Report ---
PROCEDURE: CT cervical spine without contrast. TECHNIQUE: Multiple contiguous axial images were obtained through the cervical spine without the use of intravenous contrast. Sagittal and coronal reformations were then performed. Auto Exposure Controls were utilized during the CT exam to meet ALARA standards for radiation dose reduction. INDICATION: Neck pain CT cervical spine: Odontoid is intact. Atlantoaxial and basicervical relationships appear normal. Vertebral body alignment is normal. Disc spaces well maintained. Posterior elements are intact. There is no fracture seen. IMPRESSION: Unremarkable CT cervical spine. Dictated by: Dictated on workstation # [id number]
[2022-08-26] MEDS ORDERED: NAPR-915 PO (18:35)
[2022-08-26] MEDS ORDERED: LISI1TAB46 PO (18:35)
[2022-08-26 18:42] VITALS: BP 195/117
[2022-08-26] MEDS ORDERED: KETOROLAC 30 MG/ML VIAL IM ONE (18:45)
== END 2022-08-26 18:42 | disposition home or self-care (01) ==
LOC: EDUNIT# 17:16 → ER 17:17
DX: M54.2 Cervicalgia (principal); I10 Essential (primary) hypertension; M25.511 Pain in right shoulder; F17.200 Nicotine dependence, unspecified, uncomplicated
CPT/HCPCS: 36415; 71045; 72125; 80053; 83690; 83735; 83880; 84484; 85025; 85610; 85730; 93005